=== PATIENT | female | born 1970 | race Caucasian/White ===

== ENCOUNTER → 2020-08-28 10:24 | Outpatient (BNVA) | payer OTHER, SELFPAY | PROVIDERS: PCP Internal Medicine; Visit Provider Surgery | DX: Z76.89 Persons encountering health services in other specified circumstances (principal) ==

== ENCOUNTER 2020-09-21 06:05 | Day surgery (SDC) | payer OTHER, SELFPAY ==
[2020-09-16 09:08] VITALS: BMI 32.5
[2020-09-16 12:08] VITALS: BMI 32.5
[2020-09-21] VITALS (9 sets, daily range): BP systolic 103–125; BP diastolic 54–74; PULSE 55–84; RESP 16–18; TEMP 36.3–36.6; O2SAT 91–98
[2020-09-21] MEDS: Lactated Ringers 1,000 ML 100 ML IVCONT (06:46)
[2020-09-21] MEDS: ceFAZolin Sodium/Dextrose,Iso 2 GM/50 ML PIGGYBACK IV (06:46)
--- NOTE | 2020-09-21 07:17 | MHC.SHP ---
Pre-Procedural Eval Section A The patient is an INPATIENT: No Changes since office visit: Yes Patient answered all questions; No Cold of Flu in the past 2 weeks, No New Medical Problems and No Changes in Medication The History & Physical has been completed within 30 days and I have reviewed it.: Yes Section B Chief Complaint: Umbilical Hernia Allergies: Allergies Allergy/AdvReac Type Severity Reaction Status Date / Time Sulfa (Sulfonamide Allergy Intermediate SWELLING Verified 09/21/20 06:26 Antibiotics) [SULFA (SULFONAMIDE ANTIBIOTICS)] Plan Diagnosis/Plan: Unchanged Patient has been examined and remains a candidate for the planned procedure
--- NOTE | 2020-09-21 07:22 | P.CONAN_ITS ---
[facility] Past Medical History Medical History (Updated 09/16/20 @ 12:06 by Mariajose Kelly) Anxiety Asthma Depression Heart murmur Hypercholesterolemia Hypothyroid Wears contact lenses Family History Family History Father History of pancreatic cancer Paternal Aunt Breast cancer Surgical History Surgical History (Updated 09/16/20 @ 12:06 by Mariajose Kelly) H/O dilation and curettage History of section Social History Social History (Updated 09/16/20 @ 12:07 by Mariajose Kelly) Alcohol intake: current Alcohol intake frequency: a few times a month Smoking Status: Former smoker Smoking Quit Date: 1999 Use of substances other than those prescribed or required for medical reasons: No Advance Directives: No Advance Directives Information Provided: No Advance Directives on File: No Meds Allergies Allergy/AdvReac Type Severity Reaction Status Date / Time Sulfa (Sulfonamide Allergy Intermediate SWELLING Verified 09/21/20 06:26 Antibiotics) [SULFA (SULFONAMIDE ANTIBIOTICS)] Home Medications Medication Instructions Recorded Confirmed Type albuterol sulfate 90 mcg/actuation 2 puff INHALATION Q4-6H PRN 08/28/20 09/21/20 History aerosol inhaler citalopram 20 mg tablet 20 mg PO DAILY 08/28/20 09/21/20 History levothyroxine 125 mcg tablet 125 mcg PO DAILY 08/28/20 09/21/20 History simvastatin 40 mg tablet 40 mg PO BEDTIME 08/28/20 09/21/20 History Exam Exam Date and Time: September 21, 2020 0722 Height,Weight and Vital Signs: Height 5 ft 2 in Weight 80.739 kg Last Vital Signs Temp 97.9 F 09/21/20 06:18 Pulse 55 09/21/20 06:18 Resp 16 09/21/20 06:18 BP 113/69 09/21/20 06:18 Pulse Ox 95 09/21/20 06:18 Airway Mallampati Class: II (small mouth) TM Dist: >3cm Neck ROM: Full Loose/Missing/Broken Teeth: No Heart: RRR Lungs: CTAB Assessment and Plan Assessment Anesthesia Assessment: Anesthesia Plan Discussed and Chart Reviewed Final Anesthetic Review NPO: Yes ASA Class: II Final Preanesthetic Review: No Changes in Pt Med Stat, Meds/Allgs Chart Reviewed, Consent Obtained/Reviewed and Anes Risks/Benef Reviewed Patient Risk: Low Procedure Risk: Low Anesthetic Plan Anesthetic Plan: GA Disposition: Standard PACU
--- NOTE | 2020-09-21 08:40 | PM.OP ---
Brief Operative Note Date of Service: 09/21/20 Pre-op diagnosis: Umbilical hernia Post-op diagnosis: same Procedure: Repair of umbilical hernia with mesh Implants: 6.4 cm round Ventralex mesh Surgeon: Leobardo Beyer MD Anesthesia: GLMA Estimated blood loss (mL): 2 Pathology: none sent Condition: stable Disposition: PACU
--- NOTE | 2020-09-21 08:41 | W.PM.OPN ---
Operative Note Operative Note Date of Service: 09/21/20 Narrative: Preoperative diagnosis: Umbilical hernia Postoperative diagnosis: same Procedure: Repair of Umbilical hernia with mesh Surgeon: Leobardo Beyer MD Perforating Machine Operator: none Anesthesia: General LMA Indications for surgery : Patient is a 50-year-old female presenting with a lump in the umbilicus which increases in size with lifting and straining and reduces with light pressure. Patient is identified the lump which seems to be increasing in size and causing more discomfort. Patient is requested repair of this hernia. Operative findings: 2 cm umbilical hernia Specimen: none EBL: 2 ml Complications: none Procedure details: Patient was brought to the OR and placed in the supine position. After administering general anesthesia
[2020-09-21] MEDS: Acetaminophen 325 MG TABLET 650 MG PO (09:01)
--- NOTE | 2020-09-21 09:05 | HO.POSTANES ---
Post Anesthesia Evaluation Post Anesthesia Evaluation Vital Signs: Vital Signs Temp Pulse Resp BP Pulse Ox 09/21/20 08:45 69 18 107/54 L 96 09/21/20 08:40 68 18 110/56 L 94 09/21/20 08:35 74 18 114/60 91 L 09/21/20 08:30 97.4 F 84 16 119/65 92 09/21/20 06:18 97.9 F 55 16 113/69 95 Anesthesia: General Mental Status: Awake Pain Control: Satisfactory Nausea/Vomiting: None Hydration: Adequate Anesthesia-Related Issues: No Anes. Related Issues
[2020-09-21] MEDS: oxyCODONE HCl Immed Release 5 MG TABLET PO (09:11)
--- NOTE | 2020-09-21 09:44 | P.OP_ITS ---
Operative Note Operative Note Date of Service: 09/21/20 Narrative: Preoperative diagnosis: Umbilical hernia Postoperative diagnosis: same Procedure: Repair of umbilical hernia with mesh Surgeon: Leobardo Beyer MD Precision Devices Inspector/Tester: None Anesthesia: General LMA Indications for procedure patient is a 50-year-old female presenting with a soft tissue mass in the umbilicus which increases in size with lifting and straining reduces with light pressure. On examination the patient is found to have an umbilical hernia which increases in size with Valsalva maneuvers. The hernia is easily reducible. Operative findings: Patient was found to have a 2 cm umbilical hernia repaired with a 6.[address] mesh Estimated blood loss: 2 mL Complications: None Specimen: None Procedure details: Patient was placed in a supine position. After administering general anesthesia the patient's abdomen was prepped with ChloraPrep and draped in a sterile fashion. A surgical time-out was called and consent confirmed. Patient received preoperative antibiotics and Venodyne boots were placed. Local anesthesia consisting of 0.5% Sensorcaine was infiltrated around the umbilicus. Curvilinear incision was made below the umbilicus carried out through subcutaneous tissue up to the hernia sac. The hernia sac was then dissected free from the surrounding subcutaneous tissue. Umbilical skin was then dissected off the hernia sac using electrocautery. The margins of the fa scia were then dissected free and the hernia sac reduced. A preperitoneal space was then created using electrocautery. The hernia defect measured 2 cm in diameter. A 6.[address] mesh was then obtained. This was placed in the preperitoneal space and secured to the fascia using [id number] 1. Tycron sutures. Fascia was closed over the mesh incorporating the mesh in the closure. The wounds were then irrigated with saline and suctioned dry. Wounds were checked for hemostasis. Umbilical skin was then reapproximated to the fascia using a 3-0 Polysorb suture. Dermis was reapproximated using interrupted 3-0 Polysorb sutures. Skin was closed using a running subcuticular 4 0 Polysorb suture. Steri-Strips 2 x 2 gauze and Tegaderm were then applied. The patient tolerated the procedure well. Sponge, instrument, and needle counts reported as correct. The patient was transferred to PACU in stable condition.
== END 2020-09-21 11:00 | disposition home or self-care (01) ==
PROVIDERS: PCP Internal Medicine; Visit Provider Surgery
PROC: (CPT 49585; principal; 2020-09-21 07:30)
DX: K42.9 Umbilical hernia without obstruction or gangrene (principal); Z80.0 Family history of malignant neoplasm of digestive organs; J45.909 Unspecified asthma, uncomplicated; F32.9 Major depressive disorder, single episode, unspecified; E78.00 Pure hypercholesterolemia, unspecified; E03.9 Hypothyroidism, unspecified; Z79.899 Other long term (current) drug therapy; Z88.2 Allergy status to sulfonamides
CPT/HCPCS: 49585; C1781; J0690; J1100; J2250; J2405; J3010

== ENCOUNTER → 2020-09-29 08:15 | Outpatient (BNVA) | payer OTHER, SELFPAY | PROVIDERS: PCP Internal Medicine; Referring Provider Internal Medicine; Visit Provider Surgery | DX: Z76.89 Persons encountering health services in other specified circumstances (principal) ==

== ENCOUNTER → 2020-10-29 09:21 | Outpatient (BNVA) | payer OTHER, SELFPAY | PROVIDERS: PCP Internal Medicine; Visit Provider Surgery | DX: Z76.89 Persons encountering health services in other specified circumstances (principal) ==

== ENCOUNTER → 2021-04-29 08:52 | Outpatient (REF) | payer OTHER, SELFPAY | LOC: HO.SL 08:52 | PROVIDERS: PCP Internal Medicine; Visit Provider Internal Medicine | DX: R06.83 Snoring (principal); R06.81 Apnea, not elsewhere classified | CPT/HCPCS: 95806 ==

== ENCOUNTER 2021-08-28 09:19 | Outpatient (REF) | payer OTHER, SELFPAY ==
[2021-08-28 11:24] LABS: Alanine Aminotransferase 21 U/L (0-31); Albumin Level 4.4 g/dL (3.5-5.0); Alkaline Phosphatase 120 U/L (39-117); Aspartate Amino Transferase 18 U/L (5-31); Bilirubin Direct < 0.2 mg/dL (0.0-0.5); Bilirubin Total 0.4 mg/dL (0.0-1.0); Cholesterol 205 mg/dL; HDL Cholesterol 50 mg/dL; LDL Cholesterol Calculated 136 mg/dl; Total Protein 7.1 g/dL (6.5-8.0); Triglycerides 95 mg/dL
== END 2021-08-28 09:20 | disposition home or self-care (01) ==
LOC: HO.HMGCLDS 09:19
PROVIDERS: PCP Internal Medicine; Visit Provider Internal Medicine
DX: E78.00 Pure hypercholesterolemia, unspecified (principal)
CPT/HCPCS: 36415; 80061; 80076

== ENCOUNTER 2022-02-14 12:16 | Day surgery (SDC) | payer MEDICAID, SELFPAY ==
--- NOTE | 2022-02-10 14:30 | HO.ANESPROP2 ---
Documented by User: Rebeca Elaine NP 02/10/22 14:31 HPI - Anesthesia Eval Consult details Narrative: 52yo F for Colonoscopy PMFSH Active Problems Active Problems: All Active Problems (Updated 02/09/22 @ 11:35 by Princess Espino, RN) Family history of pancreatic cancer (Acute) Past Medical History Medical History (Updated 02/09/22 @ 11:35 by Princess Espino, RN) Anxiety Asthma Depression Heart murmur Hypercholesterolemia Hypothyroid FAZAL on CPAP Wears contact lenses Family History Family History Father History of pancreatic cancer Paternal Aunt Breast cancer Surgical History Surgical History (Updated 02/09/22 @ 11:36 by Princess Espino RN) H/O dilation and curettage H/O umbilical hernia repair History of section Social History Social History Alcohol intake: current Alcohol intake frequency: a few times a month Patient Tobacco Use Status: Never used Tobacco Use of substances other than those prescribed or required for medical reasons: No Advance Directives: No Advance Directives Information Provided: Yes Nutrition Risks: No Nutritional Risk Meds Allergies Allergy/AdvReac Type Severity Reaction Status Date / Time Sulfa (Sulfonamide Allergy Intermediate SWELLING Verified 02/09/22 11:36 Antibiotics) [SULFA (SULFONAMIDE ANTIBIOTICS)] Home Medications Medication Instructions Recorded Confirmed Last Taken Type albuterol sulfate 90 mcg/actuation 2 puff INHALATION Q4-6H PRN 08/28/20 02/09/22 Unknown History aerosol inhaler (ProAir HFA) citalopram 20 mg tablet 20 mg PO DAILY 08/28/20 02/09/22 Unknown History levothyroxine 125 mcg tablet 125 mcg PO DAILY 08/28/20 02/09/22 Unknown History simvastatin 40 mg tablet 40 mg PO BEDTIME 08/28/20 02/09/22 Unknown History lorazepam 0.5 mg tablet 0.5 mg PO TID PRN 02/09/22 02/09/22 Unknown History qtpluxwkglrw-vipshrun-iqdoft 1 tab PO DAILY 02/09/22 02/09/22 Unknown History tablet (Multivitamin 50 Plus) Exam Exam Date and Time: February 10, 2022 1430 Assessment and Plan Assessment Anesthesia Assessment: Chart Reviewed Documented by User: Sujit Burks MD 02/14/22 13:50 PMFSH Past Medical History Medical History (Updated 02/09/22 @ 11:35 by Princess Espino, RN) Anxiety Asthma Depression Heart murmur Hypercholesterolemia Hypothyroid FAZAL on CPAP Wears contact lenses Family History Family History Father History of pancreatic cancer Paternal Aunt Breast cancer Family history of problems with anesthesia: No Surgical History Surgical History (Updated 02/09/22 @ 11:36 by Princess Espino RN) H/O dilation and curettage H/O umbilical hernia repair History of section History of Problems with Anesthesia: No Social History Social History Alcohol intake: current Alcohol intake frequency: a few times a month Patient Tobacco Use Status: Never used Tobacco Use of substances other than those prescribed or required for medical reasons: No Advance Directives: No Advance Directives Information Provided: Yes Nutrition Risks: No Nutritional Risk Meds Allergies Allergy/AdvReac Type Severity Reaction Status Date / Time Sulfa (Sulfonamide Allergy Intermediate SWELLING Verified 02/09/22 11:36 Antibiotics) [SULFA (SULFONAMIDE ANTIBIOTICS)] Home Medications Medication Instructions Recorded Confirmed Last Taken Type albuterol sulfate 90 mcg/actuation 2 puff INHALATION Q4-6H PRN 08/28/20 02/09/22 Unknown History aerosol inhaler (ProAir HFA) citalopram 20 mg tablet 20 mg PO DAILY 08/28/20 02/09/22 Unknown History levothyroxine 125 mcg tablet 125 mcg PO DAILY 08/28/20 02/09/22 Unknown History simvastatin 40 mg tablet 40 mg PO BEDTIME 08/28/20 02/09/22 Unknown History lorazepam 0.5 mg tablet 0.5 mg PO TID PRN 02/09/22 02/09/22 Unknown History valnijhiyedv-hqsnkaji-yfkjnv 1 tab PO DAILY 02/09/22 02/09/22 Unknown History tablet (Multivitamin 50 Plus) Exam Airway Mallampati Class: II TM Dist: >3cm Neck ROM: Full Loose/Missing/Broken Teeth: No Heart: rrr+s1s2 Lungs: cta b/l Assessment and Plan Assessment Anesthesia Assessment: Anesthesia Plan Discussed Final Anesthetic Review Family History of Problems with Anesthesia: No History of Problems with Anesthesia: No NPO: Yes ASA Class: II Final Preanesthetic Review: No Changes in Pt Med Stat, Meds/Allgs Chart Reviewed, Consent Obtained/Reviewed and Anes Risks/Benef Reviewed Patient Risk: Intermediate Procedure Risk: Low Assessment/Block/Sedation in SS: Assess/Block/Sedation-SS Anesthetic Plan Anesthetic Plan: MAC: and Agree w/ Assess. and Plan Disposition: Standard PACU
[2022-02-14 13:17] VITALS: BP 127/69; PULSE 64; RESP 16; TEMP 36.8; O2SAT 95; BMI 33.8
--- NOTE | 2022-02-14 13:30 | OP_ITS ---
SURGEON: Viet Ortiz MD INDICATIONS: The patient presents for evaluation of colorectal cancer screening. Full consent was obtained from her for this, including risks of bleeding and perforation. PREOPERATIVE DIAGNOSIS: Colorectal cancer screening. POSTOPERATIVE DIAGNOSIS: PROCEDURE PERFORMED: Colonoscopy to the cecum and terminal ileum. ESTIMATED BLOOD LOSS: COMPLICATIONS: ANESTHESIA: Monitored anesthesia care. ASSISTANTS: SPECIMENS: POSTOPERATIVE DIAGNOSES: 1.Colorectal cancer screening. 2.Diverticulosis. DESCRIPTION OF PROCEDURE: The patient was placed in the left lateral decubitus position. The digital rectal exam revealed no abnormalities. The Olympus video pediatric colonoscope was entered into the rectum and advanced easily to the cecum. Once in the cecum, I did identify normal-appearing cecal pouch with appendiceal orifice and a normal-appearing ileocecal valve. The terminal ileum was cannulated and appeared normal. The scope was withdrawn back into the colon. The entire cecum and ileocecal valve appeared normal. The scope was slowly withdrawn assessing all mucosal surfaces carefully. Preparation was excellent. I did not visualize any sign of polyps, colitis, nor angiodysplasia. Diverticulosis was noted in the sigmoid colon. In the rectum, the scope was retroflexed visualizing small internal hemorrhoids, but no other pathology. The rectal mucosa appeared normal. The scope was straightened and withdrawn from the patient. She tolerated the procedure well and was returned to the recovery area in stable condition. IMPRESSION: 1.Diverticulosis. 2.Internal hemorrhoids. PLAN: Given the negative exam, I would recommend a followup colonoscopy in 10 years for further screening. She will otherwise see me on a p.r.n. basis. Viet Ortiz MD RMW/EUGENIOL / [id number] MTDNeal
[2022-02-14] MEDS: Lactated Ringers 1,000 ML 100 ML IVCONT (13:40)
[2022-02-14 16:08] VITALS: BP 110/60; PULSE 69; RESP 16; TEMP 36.6; O2SAT 96
--- NOTE | 2022-02-14 16:10 | PM.OP ---
Brief Operative Note Date of Service: 02/14/22 Pre-op diagnosis: Screening Post-op diagnosis: other (Diverticulsosis) Procedure: Colonoscopy to the cecum and TI Surgeon: Viet Ortiz Anesthesia: MAC Was an Legal Word Processor used for this Procedure?: No Estimated blood loss (mL): 0 Pathology: none sent Condition: stable Disposition: PACU
[2022-02-14 16:23] VITALS: BP 102/51; PULSE 57; RESP 16; O2SAT 94
[2022-02-14 16:38] VITALS: BP 107/64; PULSE 54; RESP 16; TEMP 36.6; O2SAT 95
== END 2022-02-14 16:57 | disposition home or self-care (01) ==
PROVIDERS: PCP Internal Medicine; Visit Provider Internal Medicine
PROC: 0DJD8ZZ Inspection of Lower Intestinal Tract, Via Natural or Artificial Opening Endoscopic (ICD-10-PCS; CPT 45378; principal; 2022-02-14 13:30)
DX: Z12.11 Encounter for screening for malignant neoplasm of colon (principal); K57.30 Diverticulosis of large intestine without perforation or abscess without bleeding; Z80.0 Family history of malignant neoplasm of digestive organs; J45.909 Unspecified asthma, uncomplicated; E03.9 Hypothyroidism, unspecified; G47.33 Obstructive sleep apnea (adult) (pediatric); F41.1 Generalized anxiety disorder; E78.5 Hyperlipidemia, unspecified; R01.1 Cardiac murmur, unspecified; Z79.899 Other long term (current) drug therapy; Z88.2 Allergy status to sulfonamides; Z87.891 Personal history of nicotine dependence
CPT/HCPCS: 45378

== ENCOUNTER 2022-08-19 06:33 | Outpatient (REF) | payer MEDICAID, SELFPAY ==
[2022-08-19 11:25] LABS: MANUAL DIFF FLAG NO
[2022-08-19 11:44] LABS: Basophils Percent Auto 0.8 % (0-2); Eosinophils Absolute Auto 0.2 X10*3/uL (0.0-0.4); Eosinophils Percent Auto 4.9 % (0-4); Hematocrit 39.2 % (37.0-47.0); Hemoglobin 12.9 g/dl (12.0-16.0); Imm Gran Abs Auto 0.01 X10*3/uL (0.00-0.03); Imm Gran Pct Auto 0.3 % (0.0-0.4); Lymphocytes Absolute Auto 1.1 X10*3/uL (1.2-4.9); Lymphocytes Percent Auto 29.5 % (20-40); Mean Corpuscular HGB Conc 32.9 g/dl (31.0-35.0); Mean Corpuscular Hemoglobin 29.1 pg (27.0-33.0); Mean Corpuscular Volume 88.3 fL (80.0-98.0); Mean Platelet Volume 10.6 fL (9.4-12.3); Monocytes Absolute Auto 0.4 X10*3/uL (0.1-1.2); Monocytes Percent Auto 10.1 % (2-11); Neutrophils Absolute Auto 2.1 x10*3/uL (2.0-8.3); Neutrophils Percent Auto 54.4 % (45-73); Platelet Count 232 X10*3/uL (160-400); Red Blood Count 4.44 X10*6/uL (4.20-5.50); Red Cell Distribution Width 12.9 % (11.0-16.0); White Blood Count 3.9 X10*3/uL (4.8-10.8)
[2022-08-19 12:12] LABS: Alanine Aminotransferase 23 U/L (0-31); Albumin Level 4.3 g/dL (3.5-5.0); Alkaline Phosphatase 110 U/L (39-117); Anion Gap 15 (12-20); Aspartate Amino Transferase 20 U/L (5-31); Bilirubin Direct < 0.2 mg/dL (0.0-0.5); Bilirubin Total 0.3 mg/dL (0.0-1.0); Blood Urea Nitrogen 16 mg/dL (9-16); Carbon Dioxide 25 mmol/L (22-29); Chloride 107 mmol/L (96-108); Cholesterol 168 mg/dL; Estimated Glomerular Filt Rate > 60; Glucose Fasting 113 mg/dL (60-99); HDL Cholesterol 50 mg/dL; LDL Cholesterol Calculated 94 mg/dl; Sodium 143 mmol/L (135-145); Total Protein 6.9 g/dL (6.5-8.0); Triglycerides 121 mg/dL
[2022-08-19 12:19] LABS: T4 Thyroxine 7.4 ug/dL (4.5-12.0); Thyroid Stimulating Hormone 0.44 uIU/mL (0.32-4.0)
== END 2022-08-19 06:34 | disposition home or self-care (01) ==
LOC: HO.HMGCLDS 06:33
PROVIDERS: PCP Internal Medicine; Visit Provider Internal Medicine
DX: R53.83 Other fatigue (principal); E78.00 Pure hypercholesterolemia, unspecified; E03.9 Hypothyroidism, unspecified
CPT/HCPCS: 36415; 80051; 80061; 80076; 82565; 82947; 84436; 84443; 84520; 85025

== ENCOUNTER 2022-11-28 06:35 | Outpatient (REF) | payer OTHER, SELFPAY ==
[2022-11-28 13:47] LABS: Glucose Fasting 114 mg/dL (60-99)
[2022-11-28 14:14] LABS: Free T4 (Free Thyroxine) 0.86 ng/dL (0.71-1.85); Thyroid Stimulating Hormone 0.84 uIU/mL (0.32-4.0)
== END 2022-11-28 06:36 | disposition home or self-care (01) ==
LOC: HO.HMGCLDS 06:35
PROVIDERS: PCP Internal Medicine; Visit Provider Internal Medicine
DX: R53.83 Other fatigue (principal)
CPT/HCPCS: 36415; 82947; 84439; 84443

== ENCOUNTER 2023-02-24 06:42 | Outpatient (REF) | payer OTHER, SELFPAY ==
[2023-02-24 12:34] LABS: Cholesterol 156 mg/dL; Free T4 (Free Thyroxine) 1.04 ng/dL (0.71-1.85); Glucose Fasting 109 mg/dL (60-99); HDL Cholesterol 46 mg/dL; LDL Cholesterol Calculated 89 mg/dl; Thyroid Stimulating Hormone 0.67 uIU/mL (0.32-4.0); Triglycerides 108 mg/dL
== END 2023-02-24 06:43 | disposition home or self-care (01) ==
LOC: HO.HMGCLDS 06:42
PROVIDERS: PCP Internal Medicine; Visit Provider Internal Medicine
DX: R73.09 Other abnormal glucose (principal); E78.5 Hyperlipidemia, unspecified; R53.83 Other fatigue; E03.9 Hypothyroidism, unspecified
CPT/HCPCS: 36415; 80061; 82947; 84439; 84443

== ENCOUNTER 2024-04-10 15:17 | Outpatient (REF) | payer OTHER, SELFPAY ==
--- NOTE | ~2024-04-10 | XR_ITS ---
EXAMINATION: XR CHEST CLINICAL INFORMATION: Shortness of breath, cough for 2 weeks, rule out pneumonia. COMPARISON: None available. TECHNIQUE: 2 views of the chest were obtained. FINDINGS: There is no gross pneumothorax. Lung volumes are low. Heart size within normal limits. Moderate degenerative changes in the thoracic spine. Mild loss of height of several midthoracic vertebral bodies of indeterminate age and etiology. No pleural effusion. Mild streaky bibasilar opacities, left greater than right, may represent atelectasis, although an infectious/inflammatory process should also be considered. XR/XR chest 2V IMPRESSION: 1. Mild streaky bibasilar opacities, left greater than right, may represent atelectasis, although an infectious/inflammatory process should also be considered. 2. Mild loss of height of several midthoracic vertebral bodies of indeterminate age and etiology.
== END 2024-04-10 15:18 | disposition home or self-care (01) ==
LOC: HO.HMGCX 15:17
PROVIDERS: PCP Internal Medicine; Visit Provider Internal Medicine
DX: R06.02 Shortness of breath (principal); R05.9 Cough, unspecified
CPT/HCPCS: 71046

== ENCOUNTER 2025-04-22 06:06 | Outpatient (REF) | payer OTHER, SELFPAY ==
--- OUTSIDE RECORDS SUMMARY | 2025-04-22 06:11 | XMS_ITS | Patient Health Record ---
Author Organization [facility] Address [address] [place] [address] Care Team Providers Care Collector Of Port Name Role Phone Ganga Kebede MD Primary Care Provider Unavailab Bernabe Mariano Unavailable [phone] Allergies Allergen (clinical drug ingredient) Drug/Non Drug Allergy documented on EMR Reaction Allergy Type Onset Date Status ciprofloxacin Cipro stomach pain Drug Allergy Active Levaquin swelling Drug Allergy Active Reason For Referral No Information Medications Medication SIG (Take, Route, Fr equency, Duration) Notes Start Date End Date Status Simvastatin Active Levothyroxine Sodium Active Midrin Active Meclizine HCl Active Benadryl Active ProAir HFA Active Problems Problem Type SNOMED Code ICD Code Onset Dates Problem Status W/U Status Risk Notes Problem Verruca plantaris (43165453) Verruca Plantaris (078.19) Active confirmed Problem Hallux valgus (215293753) Hallux Valgus (735.0) Active confirmed Problem Pain in limb (29791316) Pain in Limb (729.5) Active confirmed Plan Of Treatment Pending Test Test Name Order Date X ray : Foot, right 3V 08/11/2014 [id number] Destruction, -09/01/2014 [id number] Destruction, 11-1909/24/2014 [id number] Destruction, 11-1910/22/2014 [id number] Destruction, -08/11/2014 Insurance Providers Payer Name Payer Address Payer Phone Subscriber Number Group Number Insured Name Patient Relationship to Insured Coverage Start Date Coverage End Date [facility] [address] [place] [address] [phone] [id number] Cindy Brennan Self - patient is the insured Medical (General) History Medical History History ICD Code Anxiety asthma Back,Hip,and Knee pain Chicken pox Headaches Migraines Sinus conditions Thyroid disorder Surgical History Surgery Date(Month/Year) section 1999, 2006 dilatation and curettage 2004, 2005
[2025-04-22 10:21] LABS: MANUAL DIFF FLAG NO
[2025-04-22 10:28] LABS: Basophils Percent Auto 0.9 % (0-2); Eosinophils Absolute Auto 0.1 X10*3/uL (0.0-0.4); Eosinophils Percent Auto 3.9 % (0-4); Hematocrit 39.4 % (37.0-47.0); Hemoglobin 12.7 g/dl (12.0-16.0); Imm Gran Abs Auto 0.01 X10*3/uL (0.00-0.03); Imm Gran Pct Auto 0.3 % (0.0-0.4); Lymphocytes Absolute Auto 0.9 X10*3/uL (1.2-4.9); Lymphocytes Percent Auto 26.9 % (20-40); Mean Corpuscular HGB Conc 32.2 g/dl (31.0-35.0); Mean Corpuscular Hemoglobin 28.1 pg (27.0-33.0); Mean Corpuscular Volume 87.2 fL (80.0-98.0); Mean Platelet Volume 10.6 fL (9.4-12.3); Monocytes Absolute Auto 0.4 X10*3/uL (0.1-1.2); Monocytes Percent Auto 11.9 % (2-11); Neutrophils Absolute Auto 1.9 x10*3/uL (2.0-8.3); Neutrophils Percent Auto 56.1 % (45-73); Platelet Count 232 X10*3/uL (160-400); Red Blood Count 4.52 X10*6/uL (4.20-5.50); Red Cell Distribution Width 13.1 % (11.0-16.0); White Blood Count 3.4 X10*3/uL (4.8-10.8)
[2025-04-22 10:58] LABS: Alanine Aminotransferase 32 U/L (0-31); Albumin Level 4.2 g/dL (3.5-5.0); Alkaline Phosphatase 107 U/L (39-117); Anion Gap 11 (12-20); Aspartate Amino Transferase 31 U/L (5-31); Bilirubin Total 0.5 mg/dL (0.0-1.0); Blood Urea Nitrogen 16 mg/dL (9-16); Calcium 9.5 mg/dL (8.4-10.2); Carbon Dioxide 28 mmol/L (22-29); Chloride 110 mmol/L (96-108); Cholesterol 138 mg/dL (<200); Estimated Glomerular Filt Rate > 60; Glucose Fasting 111 mg/dL (60-99); HDL Cholesterol 46 mg/dL (>40); LDL Cholesterol Calculated 71 mg/dL (<100); Potassium 3.8 mmol/L (3.3-5.1); Sodium 145 mmol/L (135-145); Total Protein 6.4 g/dL (6.5-8.0); Triglycerides 109 mg/dL (<150)
[2025-04-22 11:24] LABS: Free T4 (Free Thyroxine) 1.37 ng/dL (0.71-1.85); Thyroid Stimulating Hormone < 0.01 uIU/mL (0.32-4.0)
== END 2025-04-22 06:07 | disposition home or self-care (01) ==
LOC: HO.HMGCLDS 06:06
PROVIDERS: PCP Internal Medicine; Visit Provider Internal Medicine
DX: E03.9 Hypothyroidism, unspecified (principal); R53.83 Other fatigue; E78.5 Hyperlipidemia, unspecified
CPT/HCPCS: 36415; 80053; 80061; 84439; 84443; 85025

== ENCOUNTER 2025-06-19 04:15 | Emergency (ER) | payer OTHER, SELFPAY ==
--- NOTE | ~2025-06-19 | CT_ITS ---
CLINICAL HISTORY: L flank pain CT abdomen and pelvis without contrast Comparison: None provided Findings: No consolidation or effusion. There is abnormal stranding about a segment of thickened descending colon in the region of diverticulosis. No free air, free fluid, abscess or pneumatosis. Mild fecal retention within the colon. The unenhanced liver, spleen, gallbladder, adrenal glands, pancreas, kidneys, ureters and bladder are unremarkable. Uterus and adnexa are within normal limits. Moderate atherosclerotic disease. No acute osseous finding. Impression: Acute uncomplicated diverticulitis involving the mid descending colon. This document has been electronically signed by: Osmar Acosta MD on 06/19/2025 07:10:57
[2025-06-19 04:21] VITALS: BP 122/63; PULSE 74; RESP 16; TEMP 35.8; O2SAT 94; BMI 29.8
[2025-06-19 04:39] LABS: MANUAL DIFF FLAG NO
[2025-06-19 04:40] LABS: Appearance Urine Clear; Glucose Urine UA Negative (Negative); Hematocrit 37.5 % (37.0-47.0); Hemoglobin 12.9 g/dl (12.0-16.0); Imm Gran Abs Auto 0.02 X10*3/uL (0.00-0.03); Imm Gran Pct Auto 0.2 % (0.0-0.4); Lymphocytes Absolute Auto 0.8 X10*3/uL (1.2-4.9); Mean Corpuscular HGB Conc 34.4 g/dl (31.0-35.0); Mean Corpuscular Hemoglobin 28.9 pg (27.0-33.0); Mean Corpuscular Volume 84.1 fL (80.0-98.0); NRBC Abs Auto 0.000 X10*3/uL (0.0-0.012); NRBC Pct Auto 0.0 /100WBC (0.0-0.2); PH 5.5 (5.0-9.0); Platelet Count 194 X10*3/uL (160-400); Red Blood Count 4.46 X10*6/uL (4.20-5.50); Specific Gravity - Urine 1.025 (1.005-1.025); UMIC TRIGGER UACC YES; White Blood Count 8.3 X10*3/uL (4.8-10.8)
[2025-06-19 04:59] LABS: Alanine Aminotransferase 37 U/L (0-31); Albumin Level 4.3 g/dL (3.5-5.0); Alkaline Phosphatase 117 U/L (39-117); Anion Gap 11 (12-20); Aspartate Amino Transferase 26 U/L (5-31); Blood Urea Nitrogen 18 mg/dL (9-16); Calcium 9.4 mg/dL (8.4-10.2); Carbon Dioxide 25 mmol/L (22-29); Chloride 110 mmol/L (96-108); Creatinine Clr Calc Pharmacy 97.8; Estimated Glomerular Filt Rate > 60; Lipase 39 U/L (8-78); Potassium 3.8 mmol/L (3.3-5.1); Sodium 142 mmol/L (135-145); Total Protein 6.5 g/dL (6.5-8.0)
--- OUTSIDE RECORDS SUMMARY | 2025-06-19 05:26 | XMS_ITS | Continuity of Care Document ---
Author Organization [facility] Address [address] [address] Insurance Providers Payer Plan Claims Address Claims Phone Policy Number Group Number Relation Employer Guarantor Name Guarantor Guarantor Address Guarantor Phone [employer] [address], [place] [address] tel:[phone] [id number] Self Cindy Brennan [address] [place] [address] [facility] [id number] Self Cindy Brennan [address] [place] [id number] MEDIC AID OF [facility] [address], [place] [address] tel:[phone] [id number] Self Cindy Brennan [address] [place] [address] Problems Condition ICD9 code ICD10 code SNOMED code Start Date End Date S tatus Encounter for screening for other metabolic disorders Z13.228 Results No Results Allergies, adverse reactions, alerts No known allergies and adverse reactions Medications No administered medications reported Vital Signs No vital signs reported Social History No smoking Hx information available
--- OUTSIDE RECORDS SUMMARY | 2025-06-19 05:26 | XMS_ITS | Patient Health Record ---
Author Organization [facility] Address [address] [place] [address] Care Team Providers Care Core Drilling Supervisor Name Role Phone Yandy (RETIRED) Ganga ORELLANA Primary Care Provider Unavailable Viet Ortiz Unavailable [phone] Allergies Allergen (clinical drug ingredient) Drug/Non Drug Allergy documented on EMR Reaction Allergy Type Onset Date Status sulfacetamide Sulfacetamide Sodium Unknown Drug Allergy Active Reason For Referral No Information Medications Medication SIG (Take, Route, Frequency, Duration) Notes Start Date End Date Status Multivitamin Adults - as directed Orally Active LORazepam 0.5 MG 1 tablet as needed Orally every 6 hrs Not-Taking Rosuvastatin Calcium 40 MG TAKE 1 TABLET BY MOUTH EVERY DAY Oral for 90 Active Simvastatin Active Levothyroxine Sodium Active Citalopram Hydrobromide Active Proventil HFA Active Immunizations Vaccine Route Administration Date Status Comme nts Influenza Unknown 09/06/2018 Administered Influenza Unknown 11/15/2021 Administered Social History Tobacco Use: Social History Observation Description Date Details (start date - stop date) Former Smoker NA - NA Tobacco Use/Smoking Question Answer Notes Patient is a former smoker How long has it been since you last smoked? > 10 years Alcohol Screen Question Answer Notes Did you have a drink contain ing alcohol in the past year? Yes How often did you have a dri nk containing alcohol in the past year? Monthly or less (1 point) How many drinks did you have on a typical day when you were drinking in the past year? 1 or 2 drinks (0 point) Points 1 Interpretation Negative Section Notes: Nonsmoker; no sig alcohol Nonsmoker; no sig alcohol Problems Problem Type SNOMED Code ICD Code Onset Dates Problem Status W/U Status Risk Notes Problem 225921133 Encounter for screening for malignant neoplasm of colon (Z12.11) Active confirmed Problem [id number] Preprocedural examination (Z01.818) Active confirmed Plan Of Treatment Future Test Test Name Order Date COLONOSCOPY 11/22/2018 COLONOSCOPY 01/26/2022 Insurance Providers Payer Name Payer Address Payer Phone Subscriber Number Group Number Insured Name Patient Relationship to Insured Coverage Start Date Coverage End Date MEDICAID OF [facility] [address] [place] [phone] [id number] JUNI ZAMORA Self - patient is the insured Medical (General) History Medical History History ICD Code Heart murmur--does not see a civil preparedness coordinator and does not get periodic echocardiograms Asthma Denies NE,DM,CVA,renal disease Hypothyroidism Anxiety Sleep apnea -uses a CPAP Hyperlipidemia Surgical History Surgery Date(Month/Year) C-sections D & C Umbilical Hernia [id number]. Mazzuc co
--- OUTSIDE RECORDS SUMMARY | 2025-06-19 05:26 | XMS_ITS | Continuity of Care Document ---
Author Organization [facility] Address [address] [address] Insurance Providers Payer Plan Claims Address Claims Phone Policy Number Group Number Relation Employer Guarantor Name Guarantor Guarantor Address Guarantor Phone [employer] [address], [place] [address] tel:[phone] [id number] Self Cindy Brennan [address] [place] [address] [facility] [id number] Self Cindy Brennan [address] [place] [address] MEDIC AID OF [facility] [address], [place] [address] tel:[phone] [id number] Self Cindy Brennan [address] [place] [address] Problems Condition ICD9 code ICD10 code SNOMED code Start Date End Date S tatus Encounter for screening for other metabolic disorders Z13.228 Results No Results Allergies, adverse reactions, alerts No known allergies and adverse reactions Medications No administered medications reported Vital Signs No vital signs reported Social History No smoking Hx information available
--- OUTSIDE RECORDS SUMMARY | 2025-06-19 05:26 | XMS_ITS | Patient Health Record ---
Author Organization [facility] Address [address] [facility] [place] [address] Care Team Providers Care Skiver Machine Operator Name Role Phone Ganga Kebede MD Primary Care Provider Unavailab Bernabe Mariano Unavailable [phone] Allergies Allergen (clinical drug ingredient) Drug/Non Drug [...] W/U Status Risk Notes Problem Verruca plantaris (75523547) Verruca Plantaris (078.19) Active confirmed Problem Hallux valgus (813726619) Hallux Valgus (735.0) Active confirmed Problem Pain in limb (92695522) Pain in Limb (729.5) Active confirmed Plan Of Treatment Pending Test Test Name Order Date X ray : Foot, right 3V 08/11/2014 [id number] Destruction, 11-1909/01/2014 [id number] Destruction, 11-1909/24/2014 [id number] Destruction, 11-1910/22/2014 [id number] Destruction, -08/11/2014 Insurance Providers Payer Name Payer Address Payer Phone Subscriber Number Group Number Insured Name Patient Relationship to Insured Coverage Start Date Coverage End Date [facility] [address] [place] [address] [phone] [id number] Cindy Brennan Self - patient is the insured Medical (General) History Medical History History ICD Code Anxiety asthma Back,Hip,and Knee pain Chicken pox Headaches Migraines Sinus conditions Thyroid disorder Surgical History Surgery Date(Month/Year) section 1999, 2006 dilatation and curettage 2004, 2005
--- NOTE | 2025-06-19 05:36 | ED.ABDPAIN ---
HPI - Abdominal Pain General Chief Complaint: Abdominal Pain Stated Complaint: left upper pain Time Seen by Provider: 06/19/25 05:23 Source: patient Mode of arrival: ambulatory Limitations: no limitations History of Present Illness ED Provider: Dr. Nusrat Rivera HPI narrative: Patient comes to the emergency room complaining of left-sided flank pain. Patient states that it started in the evening before going to work. Patient states that she works at [employer], does tend to do a lot of lifting but nothing obvious that might have hurt her. Patient denies hematuria and dysuria, complaining of chills, no fever, no significant abdominal pain. Denies nausea vomiting or diarrhea, no history of kidney stones. Related Data Home Medications ?Medication ?Instructions ?Recorded ?Confirmed albuterol sulfate 90 mcg/actuation 2 puff inhalation Q4-6H PRN 08/28/20 02/09/22 aerosol inhaler (ProAir HFA) Shortness Of Breath Or Wheezing citalopram 20 mg tablet 20 mg PO DAILY 08/28/20 02/09/22 simvastatin 40 mg tablet 40 mg PO BEDTIME 08/28/20 02/09/22 lorazepam 0.5 mg tablet 0.5 mg PO TID PRN Anxiety 02/09/22 02/09/22 [id number] 1 tab PO DAILY 02/09/22 02/09/22 tablet (Multivitamin 50 Plus tablet) Previous Rx's ?Medication ?Instructions ?Recorded levothyroxine 150 mcg tablet 150 mcg PO DAILY #90 tabs 06/10/25 (Synthroid) levofloxacin 500 mg tablet 500 mg PO DAILY #9 tabs 06/19/25 metronidazole 500 mg tablet 500 mg PO BID #19 tabs 06/19/25 oxycodone 5 mg tablet 5 mg PO BID PRN pain #7 tabs 06/19/25 polyethylene glycol 3350 17 17 g PO DAILY #238 grams 06/19/25 gram/dose oral powder (Miralax) Allergies Allergy/AdvReac Type Severity Reaction Status Date / Time Sulfa (Sulfonamide Allergy Intermediate SWELLING Verified 02/09/22 11:36 Antibiotics) (SULFA (SULFONAMIDE ANTIBIOTICS)) sulfamethoxazole (From AdvReac Swelling Verified 06/19/25 04:23 Bactrim) trimethoprim (From Bactrim) AdvReac Swelling Verified 06/19/25 04:23 Review of Systems Review of Systems Constitutional : No Weight loss, No Fever, No Chills, No Night Sweats, No Fatigue, No Malaise ENT/Mouth : No Hearing loss, No Ear Pain, No Nasal Congestion, No Sinus Pain, No Hoarseness, No sore throat, No Rhinorrhea, No Swallowing Difficulty Eyes: No Eye Pain, No Swelling, No Redness, No Foreign Body, No Discharge, No Vision Changes Cardiovascular : No Chest Pain, No SOB, No Dyspnea on Exertion, No Orthopnea, No Edema, No Palpitations Respiratory : No Cough, No Sputum, No Wheezing, No Smoke Exposure, No Dyspnea Gastrointestinal : No Nausea, No Vomiting, No Diarrhea, No Constipation, No abdominal Pain, No Hematochezia, No Melena Genitourinary : no irregular bleeding, No Dysuria, No Urinary Frequency, No Hematuria, No Urinary Incontinence, No Urgency, complaining of left-sided Flank Pain, No Urinary Flow Changes, No Hesitancy Musculoskeletal : No joint pain, No Myalgias, No Joint Swelling Skin : No Skin Lesions, No rash Neuro : No Weakness, No Numbness, No Paresthesias, No Loss of Consciousness, No Dizziness, No Headache Psych : No Anxiety/Panic, No Depression, No SI/HI/AH/VH, No Social Issues, Heme/Lymph: No Bruising, No Bleeding,No Lymphadenopathy Endocrine : No Polyuria, No Polydipsia, No Temperature Intolerance COUNT INCLUDES THE [facility] Past Medical History Medical History FAZAL on CPAP Wears contact lenses Heart murmur Depression Anxiety Hypercholesterolemia Hypothyroid Asthma Surgical History (Updated 02/09/22 @ 11:36 by Princess Espino RN) H/O umbilical hernia repair H/O dilation and curettage History of section Family History Family History Father History of pancreatic cancer Paternal Aunt Breast cancer Social History Social History Alcohol intake: current Alcohol intake frequency: holidays/special occasions only Patient Tobacco Use Status: Never used Tobacco Smoked in Last 30 Days: No Use of substances other than those prescribed or required for medical reasons: No Advance Directives: No Advance Directives Information Provided: Yes Do you have a plan to hurt others: No Plan Patient : No Physical Exam ED Exam Exam: Appearance: Alert. Oriented X3. No acute distress. Well-appearing Eyes: Pupils equal, round and reactive to light. ENT: Pharynx normal. Neck: Normal inspection. Neck supple. No lymph nodes noted. No crepitus CVS: Normal heart rate and rhythm. Pulses normal. Normal S1 and S2 Respiratory: No respiratory distress. Breath sounds normal. No Wheezing. No rales Abdomen: Soft , when palpating any of the quadrants, the pain radiates towards the left flank, no rebound or guarding Skin: Skin warm and dry. Normal skin color. Normal skin turgor. Extremities: No lower extremity edema. No Lacerations. No Rash Neuro: Oriented X 3. No motor deficit. No sensory deficit. Moving all extremities. No slurred speech. CN 2 through 12 grossly intact Psych: calm, cooperative, normal affect Vital Signs: Vital Signs - 24 hr 06/19/25 04:21 06/19/25 06:00 Temperature 96.5 F L 98.6 F Pulse Rate 74 61 Respiratory Rate 16 17 Blood Pressure 122/63 122/61 Pulse Oximetry 94 96 Oxygen Delivery Method Room Air Room Air BMI result Body Mass Index 29.8 Course Course Course Narrative: Patient comes in complaining of left-sided flank pain, no history of trauma. No hematuria dysuria, complaining of chills but no fever All of patient's labs, imaging pending Patient receiving IV fluids, ketorolac and Zofran Medical Decision Making Medical Decision Making [facility] Narrative: My interpretation of labs: No significant abnormality patient's hematology and chemistry, no significant abnormality in LFTs, lipase normal, urinalysis neck CT scan shows acute uncomplicated diverticulitis involving the mid descending colon I discussed the above-mentioned with the patient. Patient states that she is still in pain. I offered to the patient IV medications, admission. Patient states that she would prefer to try to go home. Patient states that if she does not feel better or if she worsens, she will return. Sounds like a reasonable option. Although given that patient is still in pain, but be better to keep the patient. However, per patient's request, we will send her home. Differential Diagnosis Differential Diagnoses: The differential diagnosis associated with the presentation includes (Ureterolithiasis, pyelonephritis, musculoskeletal pain) Admission/Observation Consideration of admission/observation: Escalation of care including admission/observation considered (Given patient's initial presentation and symptoms, observation was considered) Lab Data MDM Lab Attestation statement: I reviewed the patient's lab results. 06/19/25 04:35 06/19/25 04:35 Labs: Lab Results 06/19/25 Range/Units 04:35 WBC 8.3 (4.8-10.8) X10*3/uL RBC 4.46 (4.20-5.50) X10*6/uL Hgb 12.9 (12.0-16.0) g/dl Hct 37.5 (37.0-47.0) % MCV 84.1 (80.0-98.0) fL MCH 28.9 (27.0-33.0) pg MCHC 34.4 (31.0-35.0) g/dl RDW 13.1 (11.0-16.0) % Plt Count 194 (160-400) X10*3/uL MPV 10.0 (9.4-12.3) fL Immature Gran % (Auto) 0.2 (0.0-0.4) % Neut % (Auto) 79.2 H (45-73) % Lymph % (Auto) 9.4 L (20-40) % [place] % (Auto) 9.5 (2-11) % Eos % (Auto) 1.3 (0-4) % Baso % (Auto) 0.4 (0-2) % Lymph # (Auto) 0.8 L (1.2-4.9) X10*3/uL [place] # (Auto) 0.8 (0.1-1.2) X10*3/uL Eos # (Auto) 0.1 (0.0-0.4) X10*3/uL Baso # (Auto) 0.0 (0.0-0.2) X10*3/uL Abs Immat Gran (auto) 0.02 (0.00-0.03) X10*3/uL Absolute Neuts (auto) 6.6 (2.0-8.3) x10*3/uL Absolute Nucleated RBC 0.000 (0.0-0.012) X10*3/uL Nucleated RBC % (auto) 0.0 (0.0-0.2) /100WBC Sodium 142 (135-145) mmol/L Potassium 3.8 (3.3-5.1) mmol/L Chloride 110 H (96-108) mmol/L Carbon Dioxide 25 (22-29) mmol/L Anion Gap 11 L (12-20) BUN 18 H (9-16) mg/dL Creatinine 0.62 (0.5-1.4) mg/dL Estim Creat Clear Calc 97.8 Estimated GFR > 60 Random Glucose 115 (60-115) mg/dL Calcium 9.4 (8.4-10.2) mg/dL Total Bilirubin 0.6 (0.0-1.0) mg/dL AST 26 (5-31) U/L ALT 37 H (0-31) U/L Alkaline Phosphatase 117 (39-117) U/L Total Protein 6.5 (6.5-8.0) g/dL Albumin 4.3 (3.5-5.0) g/dL Lipase 39 (8-78) U/L Urine Color Yellow Urine Appearance Clear Urine pH 5.5 (5.0-9.0) Ur Specific [place] 1.025 (1.005-1.025) Urine Protein Trace (Neg-Trace) mg/dL Urine Glucose (UA) Negative (Negative) mg/dL Urine Ketones 40 (Negative) mg/dL Urine Blood Trace H (Negative) Urine Nitrite Negative (Negative) Ur Leukocyte Esterase Negative (Negative) Urine RBC 3-5 H (0-2) /HPF Urine WBC 0-5 (0-5) /HPF Ur Squamous Epith Cells 0-2 (0-2) /HPF Urine Bacteria None Seen (None Seen) Hyaline Casts 0-2 (0-2) /LPF Independent Interpretation I performed an independent interpretation of an: CT Scan Radiology Impression Discussion of test interpretation with radiology: I have reviewed the radiologist's reading. Radiologist Impression: No consolidation or effusion. There is abnormal stranding about a segment of thickened descending colon in the region of diverticulosis. No free air, free fluid, abscess or pneumatosis. Mild fecal retention within the colon. The unenhanced liver, spleen, gallbladder, adrenal glands, pancreas, kidneys, ureters and bladder are unremarkable. Uterus and adnexa are within normal limits. Moderate atherosclerotic disease. No acute osseous finding. Impression: Acute uncomplicated diverticulitis involving the mid descending colon. Medications Administered Discontinued Medications Generic Name Dose Route Start Last Admin Trade Name Freq PRN Reason Stop Dose Admin Sodium Chloride 1,000 mls @ 999 mls/hr 06/19/25 05:36 06/19/25 05:55 Ns IVCONT 06/19/25 06:36 999 mls/hr .Q1H1M ONE Administration Ketorolac Tromethamine 30 mg 06/19/25 05:36 06/19/25 05:55 Ketorolac Tromethamine 30 Mg/Ml Vial IVPUSH 06/19/25 05:37 30 mg ONCE ONE Administration Ondansetron HCl 4 mg 06/19/25 05:36 06/19/25 05:55 Ondansetron Hcl 4 Mg/2 Ml Vial IVPUSH 06/19/25 05:37 4 mg ONCE ONE Administration Critical Care Time Critical Care Time Critical Care Time: Yes Total Critical Care Time: 60 Attestation: I have personally provided critical care time. Time includes review of lab data, radiology results, discussion with consultants, and monitoring for potential decompensation. Intervention performed as documented. Discharge Plan Discharge Clinical Impression: Diverticulitis Patient Disposition: Home, Self-Care Instructions: Diverticulitis (ED), Diverticulitis Diet (ED) Additional Instructions: Please follow-up with your primary care physician tomorrow. If you have any worsening or new symptoms, please return to the emergency room or call 911 Prescriptions: New levofloxacin 500 mg tablet 500 mg PO DAILY Qty: 9 0RF metronidazole 500 mg tablet 500 mg PO BID Qty: 19 0RF polyethylene glycol 3350 [Miralax] 17 gram/dose powder 17 g PO DAILY Qty: 238 0RF oxycodone 5 mg tablet 5 mg PO BID PRN (Reason: pain) Qty: 7 0RF Rx Instructions: Partial Fill upon patient request. No Action levothyroxine [Synthroid] 150 mcg tablet 150 mcg PO DAILY Qty: 90 3RF lorazepam 0.5 mg Tablet 0.5 mg PO TID PRN (Reason: Anxiety) Multivitamin 50 Plus Tablet 1 tab PO DAILY citalopram 20 mg tablet 20 mg PO DAILY simvastatin 40 mg tablet 40 mg PO BEDTIME albuterol sulfate [ProAir HFA] 90 mcg/actuation HFA aerosol inhaler 2 puff inhalation Q4-6H PRN (Reason: Shortness Of Breath Or Wheezing) Print Language: Austrian
[2025-06-19 06:00] VITALS: BP 122/61; PULSE 61; RESP 17; TEMP 37; O2SAT 96
[2025-06-19 08:03] VITALS: RESP 16
[2025-06-19 08:32] VITALS: BP 122/61; PULSE 61; RESP 17; TEMP 37; O2SAT 96
== END 2025-06-19 08:33 | disposition home or self-care (01) ==
PROVIDERS: Emergency Provider Emergency Medicine; PCP Internal Medicine
DX: K57.92 Diverticulitis of intestine, part unspecified, without perforation or abscess without bleeding (principal); R10.9 Unspecified abdominal pain
CPT/HCPCS: 36415; 74176; 80053; 81001; 83690; 85025; 96361; 96374; 96375; 99285; J1885; J2270; J2405

== ENCOUNTER → 2025-06-19 05:34 | Outpatient (BNV) | payer OTHER, SELFPAY | PROVIDERS: Emergency Provider Emergency Medicine; PCP Internal Medicine; Visit Provider Radiology Vascular & Interventional Radiology | DX: K57.32 Diverticulitis of large intestine without perforation or abscess without bleeding (principal) | CPT/HCPCS: 74176 ==

== ENCOUNTER 2025-07-31 08:53 | Outpatient (AMB) | payer OTHER, SELFPAY ==
[2025-07-31 08:53] VITALS: BP 120/78; PULSE 75; RESP 16; TEMP 36.2; O2SAT 97; BMI 29.4
--- NOTE | 2025-07-31 08:53 | MHC.PC.OV ---
Vital Signs 07/31/25 08:53 Height 5 ft 3 in Weight 166 lb 4 oz BMI 29.4 BP 120/78 Blood Pressure Location Rt brachial Position Sitting Respiration 16 Pulse 75 Pulse Source Pulse Oximeter Temp 97.2 F Temp Source Temporal Artery Scan Pulse Oximetry (%) 97 Oxygen Delivery Method Room Air Intake Visit Reasons: Establish care - transfer of care from Dr. Kebede On Site Nurse Required: No Accompanied by: Self / Same As Patient Allergies Sulfa (Sulfonamide Antibiotics) (SULFA (SULFONAMIDE ANTIBIOTICS)) Allergy (Intermediate, Verified 07/31/25 09:52) SWELLING sulfamethoxazole (From Bactrim) Adverse Reaction (Verified 07/31/25 09:52) Swelling trimethoprim (From Bactrim) Adverse Reaction (Verified 07/31/25 09:52) Swelling Medication List - Last Reconciled 07/31/25 by Cari Nunes PA-C albuterol sulfate 90 mcg/actuation (ProAir HFA) 2 puffs inhalation Q4-6H PRN amoxicillin 2,000 mg PO ONCE citalopram 20 mg PO DAILY docusate sodium (Colace) 100 mg PO DAILY levothyroxine (Synthroid) 150 mcg PO DAILY lorazepam 0.5 mg PO DAILY PRN metronidazole 500 mg PO BID ruytlktlmojl-wihcibru-sorodu (Multivitamin 50 Plus tablet) 1 tab PO DAILY naproxen 500 mg PO BID polyethylene glycol 3350 (Miralax) 17 grams PO DAILY rosuvastatin 40 mg PO DAILY Tobacco use date assessed: 07/31/25 Dental Screening Dental Screen Date: 07/31/25 Did you have a dental visit in the last 12 months?: Yes Was dental information given to patient?: Patient has dentist HPI Establish care - transfer of care from Dr. Kebede HPI Details The patient is a 55-year-old female presenting for a new patient appointment and evaluation of recent diverticulitis episode. The patient experienced severe abdominal pain and was diagnosed with diverticulitis approximately one month ago, requiring emergency room evaluation and antibiotic therapy. She reported a subsequent flare-up while still on antibiotics, which she attributes to dietary indiscretions. The patient has since been cautious with her diet to prevent recurrence. She has a history of diverticulosis, which was identified during a colonoscopy in 2021, although it was not initially communicated to her. The patient was advised to avoid certain foods that may exacerbate her condition, although she was informed that the evidence is not definitive. The patient also has internal hemorrhoids, which were discussed in the context of constipation and straining. She was advised to use stool softeners to manage her symptoms and prevent exacerbation. The patient has a history of asthma, which is exacerbated by allergies. She experienced a significant asthma exacerbation in April 2024, requiring a chest x-ray and treatment with antibiotics and steroids. The patient reports that her asthma is currently well-controlled, and she uses a CPAP machine for obstructive sleep apnea. The patient has a history of smoking, having quit 25 years ago after smoking for approximately 18 years. She was advised to consider lung cancer screening due to her smoking history. The patient has a heart murmur, which has been monitored throughout her life. She has not had a recent echocardiogram, and it was suggested to obtain one for baseline assessment. The patient is currently managing anxiety with citalopram and has been advised to follow up with a psychiatrist for further evaluation. Social History - Employment: Works for [employer] - Smoking: Quit 25 years ago after smoking for 18 years - Exercise: Engages in weight management, recently lost 25 pounds - Nutrition: Following a low-carb, low-sugar diet [facility] Medical History (Updated 07/31/25 @ 10:01 by Cari Nunes PA-C) History of mammogram (~12/28/23) Diverticulosis History of smoking 10-25 pack years FAZAL on CPAP Wears contact lenses Heart murmur Depression Anxiety Hypercholesterolemia Hypothyroid Asthma Surgical History (Updated 07/31/25 @ 10:01 by Cari Nunes PA-C) History of colonoscopy (~02/14/22) H/O umbilical hernia repair H/O dilation and curettage History of section Family History Father History of pancreatic cancer Paternal Aunt Breast cancer Social History Housing: House Alcohol intake: current Alcohol intake frequency: holidays/special occasions only Patient Tobacco Use Status: Former Tobacco user service: No Current occupational status: employed Cognitive needs: No Hearing needs: No Vision needs: Yes (rx glasses/contacts) Questionnaire PHQ-9 Over the last 2 weeks, how often have you been bothered by any of the following problems? 1. Little interest or pleasure in doing things: not at all 2. Feeling down, depressed, or hopeless: not at all 3. Trouble falling or staying asleep, or sleeping too much: not at all 4. Feeling tired or having little energy: not at all 5. Poor appetite or overeating: not at all 6. Feeling bad about yourself - or that you are a failure or have let yourself or your family down: not at all 7. Trouble concentrating on things, such as reading the newspaper or watching television: not at all 8. Moving or speaking so slowly that other people could have noticed. Or the opposite - being so fidgety or restless that you have been moving around a lot more than usual: not at all 9. Thoughts that you would be better off or of hurting yourself in some way: not at all Total score: 0 Depression Screening Interpretation: Negative Depression Screening Done: Yes 79715 - PHQ-9 Billing: Yes Source: Developed by Drs. Viet Hay, Daria Martines, Chano Awad and colleagues, with an educational brooklyn from [employer]. Thrive Questionnaire Date Thrive assessed: 07/31/25 I am a: Patient What is your living situation today?: I have a steady place to live Within the past 12 months, did the food you bought not last and you didn't have the money to get more?: Never true Within the past 12 months, did you worry whether your food would run out before you got money to buy more?: Never true Do you have trouble paying for medicines?: No Do you have trouble getting transportation to medical appointments?: No Do you have trouble paying your heating and electricity bill?: No Do you have trouble taking care of your child, family member or friend?: No Do you have trouble with day-to-day activities such as bathing, preparing meals, shopping, managing finances, etc.?: No Are you currently unemployed and looking for a job?: No Are you interested in more education?: No Please select the resources that you would like help with: None THRIVE Score: 0 AUDIT C Alcohol Use Questionnaire (AUDIT-C) 1. How often do you have a drink containing alcohol?: Never Total Score: 0 Score Reviewed/Action Taken: No KYLE-7 AMB Questionnaire KYLE-7 Date KYLE - 7 assessed: 07/31/25 Feeling nervous, anxious, or on edge: 0 = Not at all Not being able to stop or control worryin = Not at all Worrying too much about different things: 0 = Not at all Trouble relaxin = Not at all Being so restless that it is hard to sit still: 0 = Not at all Becoming easily annoyed or irritable: 0 = Not at all Feeling afraid as if something awful might happen: 0 = Not at all Total KYLE-7 score (0-4 normal; 5-9 mild; 10-14 moderate; 15-21 severe): 0 Source: Developed by Drs. Viet Hay, Daria Martines, Chano Awad and colleagues, with an educational bro[place] from [employer]. KYLE-7 Assessment Billing KYLE-7 Assessment Tool: KYLE-7 Assessment 20057 Review of Systems Const Details: - Gastrointestinal: Reports past abdominal pain, denies current pain - Respiratory: Reports asthma exacerbation in the past, denies current dyspnea - Cardiovascular: Reports heart murmur, denies chest pain - Neurological: Denies insomnia All systems reviewed & are unremarkable except as noted in HPI and below Physical exam (Primary Care) Vital Signs: Last Vital Signs Temp 97.2 F 07/31/25 08:53 Pulse 75 07/31/25 08:53 Resp 16 07/31/25 08:53 BP 120/78 07/31/25 08:53 Pulse Ox 97 07/31/25 08:53 Oxygen Delivery Method Room Air 07/31/25 08:53 Care Plan Goal for BP management: <140/90 at Goal BMI result Body Mass Index 29.4 BMI Assessment/Plan discussion: High BMI High, discussed plan: lifestyle, weight reduction, dietary, physical activity, alcohol moderation and other Tobacco/Smoking Status: Tobacco use Status Tobacco use date assessed 07/31/25 07/31/25 09:08 Patient Tobacco Use Status Former Tobacco user 07/31/25 09:08 PHQ-9: PHQ-9 Score PHQ-9: Total score 0 07/31/25 09:08 Depression Screening Interpretation: Negative Thrive Assessment: Date of Thrive Assessment Date Thrive assessed 07/31/25 07/31/25 09:08 Const Other: Appearance: Alert. Oriented X3. No acute distress. Head: Normal external exam. Normocephalic. Atraumatic. Eyes: Pupils are equal, round, and reactive to light. Extraocular movements intact. Conjunctiva and sclera normal. Eyelids normal. Ears: External auditory canal normal. Tympanic membranes normal. Throat: Pharynx normal. Uvula midline. Moist mucous membranes. Neck: Normal inspection. Neck supple. Full range of motion. No adenopathy. Thyroid Normal. No meningeal signs. No neck mass noted. Cardiovascular: Normal heart rate and rhythm. Heart sound normal. Slight heart murmur noted. Pulses normal throughout. Respiratory: No respiratory distress. Painless inspiration. Breath sounds normal. No wheezes/rales/rhonchi noted. Chest nontender. No accessory muscle usage noted or decreased air movement noted. Abdomen: Soft and nontender. Bowel sounds normal in all 4 quadrants. No distention noted. No organomegaly noted. No visible injury noted. Back: No costovertebral angle tenderness. Full range of motion noted. Skin: Skin warm and dry. Normal skin color. Normal skin turgor. No rashes/lesions/lacerations noted. Extremities: No lower extremity edema. Extremities exhibit normal range of motion. Extremities nontender. Neuro: Oriented X 3. No motor deficit. No sensory deficit. Reflexes normal. Office Procedures Flu Questionnaire Does the patient have a severe egg allergy?: No Does the patient have severe life threatening allergies?: No Does the patient have a fever or illness today?: No Has the patient ever had Guillain-[place] Syndrome?: No Has the patient ever had any past reaction to a flu shot?: No Immunizations Fluarix 4112-3724 (PF) 45 mcg (15 mcg x 3)/0.5 mL IM syringe Performing Provider: Cari Nunes PA-C [facility] [place] Administered by: Katarina Velazco CMA on 07/31/25 09:13 Dose Route Admin Location Dispensed Lot Number Expiration Date NDC Manager Behavioral 0.5 mL IM Left Deltoid 0.5 mL [id number] 05/05/26 [id number] [employer] VIS Given Date VIS Provided VIS Publication Date 07/31/25 Single Vaccine 24 Eligibility Eligibility Date Funding Source Not [facility] Eligible 07/31/25 Private Results Reviewed Results Reviewed: - Imaging: Chest x-ray showed mild streaky bibasilar opacities, possible atelectasis - Labs: Previous blood work indicated low calcium and TSH levels Coding Level of Care Code New Pt Level 4 (11765) Complex EM visit Add On G2211 Diagnoses Diverticulosis K57.90 Asthma J45.909 Heart murmur R01.1 Anxiety F41.9 Hypothyroid E03.9 FAZAL on CPAP G47.33; Z99.89 History of smoking 10-25 pack years Z87.891 Hypercholesterolemia E78.00 Additional Codes PHQ-9 - 43626 - PHQ-9 Billing: Yes ([id number]) KYLE-7 Assessment Billing - KYLE-7 Assessment Tool: KYLE-7 Assessment 82920 ([id number]) Time Spent (min) 60 Assessment & Plan Assessment & Plan (1) Diverticulosis: Code(s): K57.90 - Diverticulosis of intestine, part unspecified, without perforation or abscess without bleeding Category: Medical Plan: The patient was advised to monitor her diet carefully to prevent future episodes of diverticulitis, avoiding foods that may exacerbate her condition, although the evidence is not definitive. In case of severe symptoms, she was instructed to seek emergency care, but for mild symptoms, she could contact the clinic for a telehealth consultation and possible antibiotic prescription. (2) Asthma: Code(s): J45.909 - Unspecified asthma, uncomplicated Category: Medical Plan: Patient to continue albuterol as needed for acute exacerbations. Will refer to pulmonology for further evaluation and management. Condition is chronic and stable continue to monitor. (3) Heart murmur: Code(s): R01.1 - Cardiac murmur, unspecified Category: Medical Plan: Will refer for an echocardiogram to get baseline of heart murmur. Condition is chronic and stable. (4) Anxiety: Code(s): F41.9 - Anxiety disorder, unspecified Category: Medical Plan: Patient to continue with therapist. Patient to contact psychiatrist which she was referred to. Patient to continue citalopram 20 mg daily. Patient will have PRN Ativan 15 tablets for 30 day. Condition is chronic and stable continue to monitor. (5) Hypothyroid: Code(s): E03.9 - Hypothyroidism, unspecified Category: Medical Plan: Will repeat blood work as last TSH level was abnormal. Patient to continue levothyroxine 150 mcg. Condition is chronic and stable continue to monitor. (6) FAZAL on CPAP: Code(s): G47.33 - Obstructive sleep apnea (adult) (pediatric); Z99.89 - Dependence on other enabling machines and devices Category: Medical Plan: Patient to continue CPAP machine. Patient to be referred pulmonology for further evaluation management. Condition is chronic and stable continue to monitor. (7) History of smoking 10-25 pack years: Comment: 18 years. 1ppd. quit 25 years ago. Code(s): Z87.891 - Personal history of nicotine dependence Category: Social Hx Plan: Patient being referred to pulmonology for further evaluation management possible lung cancer screening. Condition is chronic and stable continue to monitor (8) Hypercholesterolemia: Code(s): E78.00 - Pure hypercholesterolemia, unspecified Category: Medical Plan: Patient to continue rosuvastatin 40 mg daily. Condition is chronic and stable will continue to monitor. Plan Plan Patient was informed and verbally consented to the use of an ambient scribe for clinic note documentation during this visit. 1. Diverticulitis The patient was advised to monitor her diet carefully to prevent future episodes of diverticulitis, avoiding foods that may exacerbate her condition, although the evidence is not definitive. In case of severe symptoms, she was instructed to seek emergency care, but for mild symptoms, she could contact the clinic for a telehealth consultation and possible antibiotic prescription. 2. Asthma Patient to continue albuterol as needed for acute exacerbations. Will refer to pulmonology for further evaluation and management. Condition is chronic and stable continue to monitor. 3. Heart Murmur The patient was advised to undergo an echocardiogram to establish a baseline for her heart murmur, given her history of congenital heart murmur. 4. Anxiety The patient was advised to continue her current medication, citalopram, and to follow up with a psychiatrist for further evaluation and management of her anxiety. During the visit, I discussed with the patient the importance of dietary management in preventing diverticulitis flare-ups and the potential need for antibiotics during mild episodes. We also reviewed her asthma management plan, emphasizing the use of a CPAP machine and considering a daily inhaler to prevent exacerbations. I recommended an echocardiogram to assess her heart murmur and advised her to continue her anxiety medication while seeking further psychiatric evaluation. Orders: Orders Influenza 7025-9527 Immunization Today Z23 - Encounter for immunization C Reactive Protein Today Z00.00 - Encounter for general adult medical examination without abnormal findings Lipid Panel Today Z00.00 - Encounter for general adult medical examination without abnormal findings Liver Panel Today Z00.00 - Encounter for general adult medical examination without abnormal findings TSH reflex Free T4 Today Z00.00 - Encounter for general adult medical examination without abnormal findings Magnesium Today Z00.00 - Encounter for general adult medical examination without abnormal findings Vitamin D 25-OH Total Today Z00.00 - Encounter for general adult medical examination without abnormal findings Comprehensive [place]. Panel Fast Today Z00.00 - Encounter for general adult medical examination without abnormal findings Complete Blood Count Auto Diff Today Z00.00 - Encounter for general adult medical examination without abnormal findings Hemoglobin A1c Today Z00.00 - Encounter for general adult medical examination without abnormal findings UA CC w/rflx Micro + Cult Today Z00.00 - Encounter for general adult medical examination without abnormal findings Vitamin B12 and Folate Today Z00.00 - Encounter for general adult medical examination without abnormal findings Triiodothyronine T3 Total Today E03.9 - Hypothyroidism, unspecified CA echo transthoracic complete Today R01.1 - Cardiac murmur, unspecified Referrals Pulmonology Referral G47.33 - Obstructive sleep apnea (adult) (pediatric), J45.909 - Unspecified asthma, uncomplicated, Z87.891 - Personal history of nicotine dependence, Z99.89 - Dependence on other enabling machines and devices Medications: New lorazepam 0.5 mg PO DAILY PRN 15 tabs 0RF anxiety docusate sodium (Colace) 100 mg PO DAILY 90 caps 3RF lorazepam 0.5 mg PO DAILY PRN 15 tabs 0RF anxiety Discontinued oxycodone Partial Fill upon patient request. Discontinued Reason: Doctor's Order 5 mg PO BID PRN 7 tabs 0RF pain Patient Instructions: - Monitor diet to prevent diverticulitis flare-ups. - Seek emergency care for severe symptoms, or contact the clinic for mild symptoms. - Continue using CPAP machine and consider a daily inhaler for asthma management. - Schedule an echocardiogram for heart murmur assessment. - Continue citalopram and follow up with a psychiatrist for anxiety management.
--- OUTSIDE RECORDS SUMMARY | 2025-07-31 09:32 | XMS_ITS | Patient Health Record ---
Author Organization [facility] Address [address] [place] [address] Care Team Providers Care Proposal Lead Writer Name Role Phone Yandy (RETIRED) Ganga ORELLANA Primary Care Provider Unavailable Viet Ortiz Unavailable [phone] Allergies Allergen (clinical drug ingredient) Drug/Non Drug [...] Problem Status W/U Status Risk Notes Problem [id number] Encounter for screening for malignant neoplasm of colon (Z12.11) Active confirmed Problem [id number] Preprocedural examination (Z01.818) Active confirmed Plan Of Treatment Future Test Test Name Order Date COLONOSCOPY 11/22/2018 COLONOSCOPY 01/26/2022 Insurance Providers Payer Name Payer Address Payer Phone Subscriber Number Group Number Insured Name Patient Relationship to Insured Coverage Start Date Coverage End Date MEDICAID OF [facility] [address] [place] [address] [id number] JUNI ZAMORA Self - patient is the insured Medical (General) History Medical History History ICD Code Heart murmur--does not see a demonstrator sales and does not get periodic echocardiograms Asthma Denies NH,DM,CVA,renal disease Hypothyroidism Anxiety Sleep apnea -uses a CPAP Hyperlipidemia Surgical History Surgery Date(Month/Year) C-sections D & C Umbilical Hernia [id number]. Mazzuc co
--- OUTSIDE RECORDS SUMMARY | 2025-07-31 09:32 | XMS_ITS | Patient Health Record ---
Author Organization [facility] Address [address] [place] [address] Care Team Providers Care Engineering Technical Specialist Name Role Phone Ganga Kebede MD Primary Care Provider Unavailab Bernabe Mariano Unavailable [phone] Allergies Allergen (clinical drug ingredient) Drug/Non Drug [...] W/U Status Risk Notes Problem Verruca plantaris (88046609) Verruca Plantaris (078.19) Active confirmed Problem Hallux valgus (036165304) Hallux Valgus (735.0) Active confirmed Problem Pain in limb (76396850) Pain in Limb (729.5) Active confirmed Plan Of Treatment Pending Test Test Name Order Date X ray : Foot, right 3V 08/11/2014 [id number] Destruction, -09/01/2014 81905-Dfup Destruction, 11-1909/24/2014 76487-Veup Destruction, 11-1910/22/2014 65342-Rsaz Destruction, -08/11/2014 Insurance Providers Payer Name Payer Address Payer Phone Subscriber Number Group Number Insured Name Patient Relationship to Insured Coverage Start Date Coverage End Date [facility] [address] [place] [address] [phone] [id number] Cindy Brennan Self - patient is the insured Medical (General) History Medical History History ICD Code Anxiety asthma Back,Hip,and Knee pain Chicken pox Headaches Migraines Sinus conditions Thyroid disorder Surgical History Surgery Date(Month/Year) section 1999, 2006 dilatation and curettage 2004, 2005
== END 2025-07-31 09:48 | disposition home or self-care (01) ==
LOC: HO.HMCSH 08:53
PROVIDERS: PCP Internal Medicine; Visit Provider Physician Assistant Medical
DX: K57.90 Diverticulosis of intestine, part unspecified, without perforation or abscess without bleeding (principal); J45.909 Unspecified asthma, uncomplicated; R01.1 Cardiac murmur, unspecified; F41.9 Anxiety disorder, unspecified; E03.9 Hypothyroidism, unspecified; G47.33 Obstructive sleep apnea (adult) (pediatric); Z99.89 Dependence on other enabling machines and devices; Z87.891 Personal history of nicotine dependence; E78.00 Pure hypercholesterolemia, unspecified; Z23 Encounter for immunization

== ENCOUNTER → 2025-07-31 08:53 | Outpatient (BNVA) | payer OTHER, SELFPAY | PROVIDERS: PCP Internal Medicine; Visit Provider Physician Assistant Medical | DX: K57.90 Diverticulosis of intestine, part unspecified, without perforation or abscess without bleeding (principal); Z23 Encounter for immunization; J45.909 Unspecified asthma, uncomplicated; R01.1 Cardiac murmur, unspecified; F41.9 Anxiety disorder, unspecified; E03.9 Hypothyroidism, unspecified; G47.33 Obstructive sleep apnea (adult) (pediatric); E78.00 Pure hypercholesterolemia, unspecified; Z79.899 Other long term (current) drug therapy; Z87.891 Personal history of nicotine dependence; Z99.89 Dependence on other enabling machines and devices; Z13.31 Encounter for screening for depression; Z13.39 Encounter for screening examination for other mental health and behavioral disorders | CPT/HCPCS: 90471; 90656; 96127 ==

== ENCOUNTER 2025-08-08 06:19 | Outpatient (REF) | payer OTHER, SELFPAY ==
--- OUTSIDE RECORDS SUMMARY | 2025-08-08 06:22 | XMS_ITS | Patient Health Record ---
Author Organization [facility] Address [address] [place] [address] Care Team Providers Care Materials Clerk Name Role Phone Yandy (RETIRED) Ganga ORELLANA Primary Care Provider Unavailable Viet Ortiz Unavailable [phone] Allergies Allergen (clinical drug ingredient) Drug/Non Drug [...] Problem Status W/U Status Risk Notes Problem [id number] Encounter for screening for malignant neoplasm of colon (Z12.11) Active confirmed Problem [id number] Preprocedural examination (Z01.818) Active confirmed Plan Of Treatment Future Test Test Name Order Date COLONOSCOPY 11/22/2018 COLONOSCOPY 01/26/2022 Insurance Providers Payer Name Payer Address Payer Phone Subscriber Number Group Number Insured Name Patient Relationship to Insured Coverage Start Date Coverage End Date MEDICAID OF [facility] [address] [place] [phone] [id number] JUNI ZAMORA Self - patient is the insured Medical (General) History Medical History History ICD Code Heart murmur--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 Mazzuc co
--- OUTSIDE RECORDS SUMMARY | 2025-08-08 06:22 | XMS_ITS | Patient Health Record ---
Author Organization [facility] Address [address] [place] [address] Care Team Providers Care Supervisor Of Communications Name Role Phone Ganga Kebede MD Primary Care Provider Unavailab Bernabe Mariano Unavailable [phone] Allergies Allergen (clinical drug ingredient) Drug/Non Drug [...] W/U Status Risk Notes Problem Verruca plantaris (64221376) Verruca Plantaris (078.19) Active confirmed Problem Hallux valgus (417042377) Hallux Valgus (735.0) Active confirmed Problem Pain in limb (77298564) Pain in Limb (729.5) Active confirmed Plan Of Treatment Pending Test Test Name Order Date X ray : Foot, right 3V 08/11/2014 [id number]-Uekg Destruction, -09/01/2014 88866-Cbtw Destruction, 11-1909/24/2014 62248-Sjfc Destruction, 11-1910/22/2014 78246-Sqwf Destruction, -08/11/2014 Insurance Providers Payer Name Payer Address Payer Phone Subscriber Number Group Number Insured Name Patient Relationship to Insured Coverage Start Date Coverage End Date [facility] [address] [place] [address] [id number] Cindy Brennan Self - patient is the insured Medical (General) History Medical History History ICD Code Anxiety asthma Back,Hip,and Knee pain Chicken pox Headaches Migraines Sinus conditions Thyroid disorder Surgical History Surgery Date(Month/Year) section 1999, 2006 dilatation and curettage 2004, 2005
[2025-08-08 10:15] LABS: Appearance Urine Hazy; Glucose Urine UA Negative (Negative); PH 6.0 (5.0-9.0); Specific Gravity - Urine 1.025 (1.005-1.025); UMIC TRIGGER UACC YES
[2025-08-08 10:18] LABS: MANUAL DIFF FLAG NO
[2025-08-08 10:29] LABS: Hematocrit 38.4 % (37.0-47.0); Hemoglobin 12.8 g/dl (12.0-16.0); Imm Gran Abs Auto 0.01 X10*3/uL (0.00-0.03); Imm Gran Pct Auto 0.2 % (0.0-0.4); Lymphocytes Absolute Auto 1.0 X10*3/uL (1.2-4.9); Mean Corpuscular HGB Conc 33.3 g/dl (31.0-35.0); Mean Corpuscular Hemoglobin 28.6 pg (27.0-33.0); Mean Corpuscular Volume 85.7 fL (80.0-98.0); NRBC Abs Auto 0.000 X10*3/uL (0.0-0.012); NRBC Pct Auto 0.0 /100WBC (0.0-0.2); Platelet Count 221 X10*3/uL (160-400); Red Blood Count 4.48 X10*6/uL (4.20-5.50); White Blood Count 4.1 X10*3/uL (4.8-10.8)
[2025-08-08 11:07] LABS: Alanine Aminotransferase 30 U/L (0-31); Albumin Level 4.3 g/dL (3.5-5.0); Alkaline Phosphatase 128 U/L (39-117); Anion Gap 9 (12-20); Aspartate Amino Transferase 25 U/L (5-31); Blood Urea Nitrogen 16 mg/dL (9-16); Calcium 9.5 mg/dL (8.4-10.2); Carbon Dioxide 27 mmol/L (22-29); Chloride 110 mmol/L (96-108); Cholesterol 139 mg/dL (<200); Estimated Glomerular Filt Rate > 60; HDL Cholesterol 45 mg/dL (>40); Magnesium 2.0 mg/dL (1.6-2.6); Potassium 3.9 mmol/L (3.3-5.1); Sodium 142 mmol/L (135-145); Total Protein 6.5 g/dL (6.5-8.0); Triglycerides 80 mg/dL (<150)
[2025-08-08 11:12] LABS: Folate 4.2 ng/mL (> or = 4.0); Vitamin B12 210 pg/mL (200-900)
[2025-08-08 12:05] LABS: Free T4 (Free Thyroxine) 1.39 ng/dL (0.71-1.85)
== END 2025-08-08 06:20 | disposition home or self-care (01) ==
LOC: HO.HMGCLDS 06:19
PROVIDERS: Physician Assistant Medical
DX: Z00.00 Encounter for general adult medical examination without abnormal findings (principal); Z13.1 Encounter for screening for diabetes mellitus; E03.9 Hypothyroidism, unspecified
CPT/HCPCS: 36415; 80053; 80061; 80076; 81001; 82248; 82306; 82607; 82746; 83036; 83735; 84439; 84443; 84480; 85025; 86140

== ENCOUNTER 2025-08-13 06:32 | Outpatient (REF) | payer OTHER, SELFPAY ==
--- OUTSIDE RECORDS SUMMARY | 2025-08-13 06:35 | XMS_ITS | Patient Health Record ---
Author Organization [facility] Address [address] [address] Care Team Providers Care Fleet Maintenance Foreman Name Role Phone Ganga Kebede MD Primary Care Provider Bernabe Ferro Unavailable [phone] Allergies Allergen (clinical drug ingredient) Drug/Non Drug [...] W/U Status Risk Notes Problem Verruca plantaris (07152844) Verruca Plantaris (078.19) Active confirmed Problem Hallux valgus (092235422) Hallux Valgus (735.0) Active confirmed Problem Pain in limb (03247261) Pain in Limb (729.5) Active confirmed Plan Of Treatment Pending Test Test Name Order Date X ray : Foot, right 3V 08/11/2014 [id number] Destruction, 11-1909/01/2014 [id number] Destruction, 11-1909/24/2014 [id number] Destruction, 11-1910/22/2014 [id number] Destruction, 11-1908/11/2014 Insurance Providers Payer Name Payer Address Payer Phone Subscriber Number Group Number Insured Name Patient Relationship to Insured Coverage Start Date Coverage End Date [facility] [address] [place] [address] [phone] [id number] Cindy Brennan Self - patient is the insured Medical (General) History Medical History History ICD Code Anxiety asthma Back,Hip,and Knee pain Chicken pox Headaches Migraines Sinus conditions Thyroid disorder Surgical History Surgery Date(Month/Year) section 1999, 2006 dilatation and curettage 2004, 2005
--- OUTSIDE RECORDS SUMMARY | 2025-08-13 06:35 | XMS_ITS | Patient Health Record ---
Author Organization [facility] Address [address] [place] [address] Care Team Providers Care Splunk Developer Name Role Phone Yandy (RETIRED) Ganga ORELLANA Primary Care Provider Unavailable Viet Ortiz Unavailable [phone] Allergies Allergen (clinical drug ingredient) Drug/Non Drug [...] Problem Status W/U Status Risk Notes Problem [id number] Encounter for screening for malignant neoplasm of colon (Z12.11) Active confirmed Problem [id number] Preprocedural examination (Z01.818) Active confirmed Plan Of Treatment Future Test Test Name Order Date COLONOSCOPY 11/22/2018 COLONOSCOPY 01/26/2022 Insurance Providers Payer Name Payer Address Payer Phone Subscriber Number Group Number Insured Name Patient Relationship to Insured Coverage Start Date Coverage End Date MEDICAID OF [facility] [address] [place] [address] [id number] JUNI ZAMORA Self - patient is the insured Medical (General) History Medical History History ICD Code Heart murmur--does not see a jackscrew worker and does not get periodic echocardiograms Asthma Denies [place],DM,CVA,renal disease Hypothyroidism Anxiety Sleep apnea -uses a CPAP Hyperlipidemia Surgical History Surgery Date(Month/Year) C-sections D & C Umbilical Hernia [id number]. Mazzuc co
[2025-08-13 10:58] LABS: Appearance Urine Cloudy; Glucose Urine UA Negative (Negative); PH 6.5 (5.0-9.0); Specific Gravity - Urine 1.020 (1.005-1.025)
[2025-08-13 12:09] LABS: Free T4 (Free Thyroxine) 1.33 ng/dL (0.71-1.85)
== END 2025-08-13 06:33 | disposition home or self-care (01) ==
LOC: HO.HMGCLDS 06:32
PROVIDERS: PCP Physician Assistant Medical; Visit Provider Physician Assistant Medical
DX: Z00.00 Encounter for general adult medical examination without abnormal findings (principal); Z13.29 Encounter for screening for other suspected endocrine disorder
CPT/HCPCS: 36415; 81003; 84439; 84443

== ENCOUNTER → 2025-09-18 08:00 | Outpatient (REF) | payer OTHER, SELFPAY ==
--- NOTE | 2025-09-18 08:02 | CA_ITS ---
Transthoracic Echocardiogram Patient (Last, First, Middle): Cindy Brennan, Gender: F Date of : 1970 Age: 55 Procedure Date: 09/18/2025 Procedure Type: Transthoracic Echocardiogram Location: OP Height: 160.02 cm Weight: 73.48 kg BSA: 1.77 m2 Heart Rate: 45 bpm BP: 120 / 76 mmHg Admitting Interviewer: KELLY Referring MD: Cari Nunes PA-C Client Services Analyst: [place] Prajapati MD Symptoms: R01.1 - Cardiac murmur, unspecified Study Quality: Adequate ECG Rhythm: Bradycardia Conclusions: - Essentially normal study Findings Left Ventricle Normal left ventricular size, thickness, and systolic function. The visually estimated ejection fraction is between 60-65%. Spectral Doppler is indicative of a normal filling pattern. Right Ventricle Normal right ventricular cavity size and systolic function. Atria Both atria are normal in size. Interatrial shunt cannot be excluded. Aortic Valve The aortic valve structure and function is likely normal. There is no aortic valve stenosis. There is no aortic valve regurgitation. Mitral Valve Normal mitral valve structure and function. There is trace mitral valve regurgitation. There is no mitral valve stenosis. Pulmonic Valve The pulmonic valve is likely normal. Tricuspid Valve Normal tricuspid valve structure. There is trace tricuspid valve regurgitation. The right ventricular systolic pressure is normal. The right ventricular systolic pressure is 26 mmHg. Normal right atrial pressure. There is no evidence of pulmonary hypertension. Great Vessels All visible segments of the aorta are normal in size. The pulmonary artery was not well visualized. There is no dilatation of the ascending aorta measuring 3.20 cm. Venous The inferior vena cava is normal in size and collapses greater than 50% with inspiration. Pericardium/Pleural There is no evidence of pericardial effusion. Prior Study Comparison No significant change compared to prior study dated: 08/10/2018. Measurements 2D Linear Measurements IVSd: 0.62 0.6-0.9/0.6-1.0 cm LVIDd: 5.22 3.9-5.3/4.2-5.9 cm LVIDd Index: 2.95 2.4-3.2/2.2-3.1 cm/m2 LVIDs: 3.82 2.0-3.6 cm LVPWd: 0.72 0.7-1.1 cm LV Mass: 145.67 67-162/88-224 g LV Mass Index: 82.30 43-95/49-115 g/m2 LVOT Diam: 2.10 3.0+(-)1.3 cm 2D Systolic Function EF 4C: 63.10 >55% EF 2C: 65.00 >55% EF BiP: 64.20 >55% Mitral Valve MV Pk E: 0.78 MV PK A: 0.63 MV Decel Time: 245.00 E/A: 1.20 E'Lateral: 9.14 E'Medial: 6.74 E/E' Med: 11.60 E/E' Lat: 8.60 PHT: 72.00 MVA PHT: 3.06 Decel [place]: 3.19 Aortic Valve AoV Pk Jose: 1.15 AoV Pk Grad: 5.00 NHAN: 3.25 LVOT LVOT Pk Jose: 1.09 LVOT Mn Jose: 0.74 LVOT VTI: 0.27 LVOT Pk Grad: 5.00 LVOT Mn Grad: 3.00 LVOT Diam: 2.10 LVOT Area: 3.46 Diastolic Function MV Pk E: 0.78 MV Pk A: 0.63 E/A: 1.20 E'Medial: 6.74 E/E' Med: 11.60 E' Laterial: 9.14 E/E' Lat: 8.60 Right Ventricle TAPSE (mm): 25.60 TVS' Jose: 10.40 Tricuspid Valve TR Pk Jose: 2.10 TR Pk Grad: 18.00 RA Press: 8.00 RVSP: 26.00 Great Vessels Aorta Sinus of Valsalva: 3.30 2.0-3.5 cm Ao Asc: 3.20 2.1-3.4 cm Ao Arch: 2.70 Pulmonary Veins Pulm Vein S/D 1.60 Pulmonary Valve PV Pk Jose: 0.72 Peak PV Grad: 2.00 Updated in Other Vendor System with Status of Final [place] Prajapati MD electronically signed on 09/18/2025 5:24:05 PM with status of Final
--- OUTSIDE RECORDS SUMMARY | 2025-09-18 08:07 | XMS_ITS | Patient Health Record ---
Author Organization [facility] Address [address] [place] [address] Care Team Providers Care Gun Mechanic Name Role Phone Yandy (RETIRED) Ganga ORELLANA Primary Care Provider Unavailable Viet Ortiz Unavailable [phone] Allergies Allergen (clinical drug ingredient) Drug/Non Drug [...] TAKE 1 TABLET BY MOUTH EVERY DAY Oral; Duration: 90 Active Simvastatin Active Levothyroxine Sodium Active [...] Problem Status W/U Status Risk Notes Problem Screening for malignant neoplasm of colon (318925371) Encounter for screening for malignant neoplasm of colon (Z12.11) Active confirmed Problem Preprocedural examination (068381607359698) Preprocedural examination (Z01.818) Active confirmed Plan Of Treatment Future Test Test Name Order Date COLONOSCOPY 11/22/2018 COLONOSCOPY 01/26/2022 Insurance Providers Payer Name Payer Address Payer Phone Subscriber Number Group Number Insured Name Patient Relationship to Insured Coverage Start Date Coverage End Date [facility] [address] [place] [address] [id number] JUNI ZAMORA Self - patient is the insured Medical (General) History Medical History History ICD Code Heart murmur--does not see a hydroelectric component machinist and does not get periodic echocardiograms Asthma Denies [place],DM,CVA,renal disease Hypothyroidism Anxiety Sleep apnea -uses a CPAP Hyperlipidemia Surgical History Surgery Date(Month/Year) C-sections D & C 2004/2005 Umbilical Hernia [id number]. Mazzuc co
--- OUTSIDE RECORDS SUMMARY | 2025-09-18 08:07 | XMS_ITS | Patient Health Record ---
Author Organization [facility] Address [address] [place] [address] Care Team Providers Care Painter Plate Name Role Phone Ganga Kebede MD Primary Care Provider Bernabe Ferro Unavailable [phone] Allergies Allergen (clinical drug ingredient) Drug/Non Drug [...] W/U Status Risk Notes Problem Verruca plantaris (73644777) Verruca Plantaris (078.19) Active confirmed Problem Hallux valgus (975953377) Hallux Valgus (735.0) Active confirmed Problem Pain in limb (01966378) Pain in Limb (729.5) Active confirmed Plan Of Treatment Pending Test Test Name Order Date X ray : Foot, right 3V 08/11/2014 [id number] Destruction, 11-1909/01/2014 [id number] Destruction, 11-1909/24/2014 [id number] Destruction, 11-1910/22/2014 [id number]-Otup Destruction, 11-1908/11/2014 Insurance Providers Payer Name Payer Address Payer Phone Subscriber Number Group Number Insured Name Patient Relationship to Insured Coverage Start Date Coverage End Date [facility] [address] [place] [address] [id number] Cindy Brennan Self - patient is the insured Medical (General) History Medical History History ICD Code Anxiety asthma Back,Hip,and Knee pain Chicken pox Headaches Migraines Sinus conditions Thyroid disorder Surgical History Surgery Date(Month/Year) section 1999, 2006 dilatation and curettage 2004, 2005
--- OUTSIDE RECORDS SUMMARY | 2025-09-18 08:07 | XMS_ITS | Continuity of Care Document ---
Author Organization [facility] Address [address] [address] Insurance Providers Payer Plan Claims Address Claims Phone Policy Number Group Number Relation Employer Guarantor Name Guarantor Guarantor Address Guarantor Phone [employer] [address], [place] [address] tel:[phone] [id number] Self Cindy Brennan [address] [place] [address] [facility] [id number] Self Cindy Brennan [address] [place] [id number] MEDIC AID OF [facility] [address], [place] [address] tel:[phone] [id number] Self Cindy Brennan [address] [place] [address] Problems Condition ICD9 code ICD10 code SNOMED code Start Date End Date S tatus Encounter for screening for other metabolic disorders Z13.228 Results No Results Allergies, adverse reactions, alerts No known allergies and adverse reactions Medications No administered medications reported Vital Signs No vital signs reported Social History No smoking Hx information available
== END ==
LOC: HO.CARD 08:00
PROVIDERS: PCP Physician Assistant Medical; Visit Provider Physician Assistant Medical
DX: R01.1 Cardiac murmur, unspecified (principal)
CPT/HCPCS: 93306

== ENCOUNTER → 2025-09-18 08:02 | Outpatient (BNV) | payer OTHER, SELFPAY | PROVIDERS: PCP Physician Assistant Medical; Visit Provider Internal Medicine Cardiovascular Disease | DX: R01.1 Cardiac murmur, unspecified (principal) | CPT/HCPCS: 93306 ==

== ENCOUNTER 2025-10-09 07:55 | Outpatient (AMB) | payer OTHER, SELFPAY ==
--- OUTSIDE RECORDS SUMMARY | 2025-10-09 07:58 | XMS_ITS | Patient Health Record ---
Author Organization [facility] Address [address] [facility] [place] [address] Care Team Providers Care Md Ophthalmologist Name Role Phone Ganga Kebede MD Primary Care Provider Bernabe Ferro Unavailable [phone] Allergies Allergen (clinical drug ingredient) Drug/Non Drug [...] W/U Status Risk Notes Problem Verruca plantaris (73564014) Verruca Plantaris (078.19) Active confirmed Problem Hallux valgus (257611815) Hallux Valgus (735.0) Active confirmed Problem Pain in limb (93824431) Pain in Limb (729.5) Active confirmed Plan Of Treatment Pending Test Test Name Order Date X ray : Foot, right 3V 08/11/2014 [id number] Destruction, 11-1909/01/2014 [id number] Destruction, 11-1909/24/2014 [id number] Destruction, 11-1910/22/2014 [id number] Destruction, 11-1908/11/2014 Insurance Providers Payer Name Payer Address Payer Phone Subscriber Number Group Number Insured Name Patient Relationship to Insured Coverage Start Date Coverage End Date [facility] [address] [place] [address] [id number] Cindy Brennan Self - patient is the insured Medical (General) History Medical History History ICD Code Anxiety asthma Back,Hip,and Knee pain Chicken pox Headaches Migraines Sinus conditions Thyroid disorder Surgical History Surgery Date(Month/Year) section 1999, 2006 dilatation and curettage 2004, 2005
--- OUTSIDE RECORDS SUMMARY | 2025-10-09 07:59 | XMS_ITS | Patient Health Record ---
Author Organization [facility] Address [address] [place] [address] Care Team Providers Care Barbering Instructor Name Role Phone Yandy (RETIRED) Ganga ORELLANA Primary Care Provider Unavailable Viet Ortiz Unavailable [phone] Allergies Allergen (clinical drug ingredient) Drug/Non Drug Allergy documented on EMR Reaction Allergy Type Onset Date Status sulfacetamide Sulfacetamide Sodium Unknown Drug Allergy Active Reason For Referral No Information Medications Medication SIG (Take, Route, Frequency, Duration) Notes Start Date End Date Status Multivitamin Adults - Tablet as directed Orally Active LORazepam 0.5 MG Tablet 1 tablet as need ed Orally every 6 hrs Not-Taking/NV N Rosuvastatin Calcium 40 MG Tablet TAKE 1 TABLET BY MOUTH EVERY DAY Oral; Duration: 90 Active Simvastatin Active Levothyroxine Sodium Active Citalopram Hydrobromide Active Proventil HFA Active Immunizations Vaccine Route Administration Date Status Comme nts Influenza Unknown 09/06/2018 Administered Influenza Unknown 11/15/2021 Administered Social History Tobacco Use: Social History Observation Description Date Details (start date - stop date) Former Smoker NA - NA Social History Drugs/Alcohol: Social Info Question Answer Notes Alcohol Screen Did you have a drink containing alcohol in the past year? Yes How often did you have a drink containing alcohol in the past year? Monthly or less (1 point) How many drinks did you have on a typical day when you were drinking in the past year? 1 or 2 drinks (0 point) Points 1 Interpretation Negative Tobacco Use: Social Info Question Answer Notes Tobacco Use/Smoking Patient is a former smoker How long has it been since you last smoked? 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: Nonsmoker; no sig alcohol Nonsmoker; no sig alcohol Problems Problem Type SNOMED Code ICD Code Onset Dates Problem Status W/U Status Risk Notes Problem Screening for malignant neoplasm of colon (318219582) Encounter for screening for malignant neoplasm of colon (Z12.11) Active confirmed Problem Preprocedural examination (359478206888246) Preprocedural examination (Z01.818) Active confirmed Plan Of Treatment Future Test Test Name Order Date COLONOSCOPY 11/22/2018 COLONOSCOPY 01/26/2022 Insurance Providers Payer Name Payer Address Payer Phone Subscriber Number Group Number Insured Name Patient Relationship to Insured Coverage Start Date Coverage End Date [facility] [address] [place] [phone] [id number] JUNI ZAMORA Self - patient is the insured Medical (General) History Medical History History ICD Code Heart murmur--does not see a gift packer and does not get periodic echocardiograms Asthma Denies [place],DM,CVA,renal disease Hypothyroidism Anxiety Sleep apnea -uses a CPAP Hyperlipidemia Surgical History Surgery Date(Month/Year) C-sections D & C Umbilical Hernia [id number]. Mazzuc co
[2025-10-09 08:04] VITALS: BP 102/66; PULSE 58; O2SAT 96; BMI 29.5
--- NOTE | 2025-10-09 08:04 | MHC.OFFVIS ---
Vital Signs 10/09/25 08:04 Height 5 ft 3 in Weight 166 lb 7.184 oz BMI 29.5 BP 102/66 Blood Pressure Location Lt brachial Position Sitting Pulse 58 Pulse Source Pulse Oximeter Pulse Oximetry (%) 96 Oxygen Delivery Method Room Air Intake Visit Reasons: Thyrotoxicosis, unspecified without thyrotoxic cri Intake Note: NEW Patient presents today to establish care for Thyrotoxixosis. Rug Scratcher Required: No Accompanied by: Self / Same As Patient Allergies Sulfa (Sulfonamide Antibiotics) (SULFA (SULFONAMIDE ANTIBIOTICS)) Allergy (Intermediate, Verified 10/09/25 08:09) SWELLING sulfamethoxazole (From Bactrim) Adverse Reaction (Verified 10/09/25 08:09) Swelling trimethoprim (From Bactrim) Adverse Reaction (Verified 10/09/25 08:09) Swelling HPI Comments Details: 55 years old female hypothyroidism, diverticulosis, FAZAL on CPAP, asthma, hypercholesterolemia, depression/anxiety, seen in the office for initial evaluation and management of hypothyroidism. The patient was diagnosed with hypothyroidism in the late after experiencing symptoms such as hair loss, facial puffiness, and fatigue. The diagnosis was confirmed through blood tests, as the patient's mother also has hypothyroidism, suggesting a familial link. The patient has been on levothyroxine since diagnosis, with doses ranging from 110 mcg to 175 mcg. Currently, the patient is on 125 mcg, reduced from 150 mcg, due to recent bloodwork indicating excessive medication levels. This adjustment was made approximately one month ago. The patient has experienced a weight loss of 22 pounds over the past three months, which might have influenced the levothyroxine dose adjustment. Current symptoms include fatigue, hair thinning, anxiety, and occasional heart palpitations, though these have not improved since the dose change. The patient works two jobs, contributing to tiredness, and has experienced recent diverticulitis. The patient does not take biotin supplements and takes levothyroxine in the morning alongside rosuvastatin and citalopram. Physical exam: General: Well appearing. NAD. Not Cushingoid or Acromegalic Neck/Thyroid: Thyroid not palpable, no nodules. CV: RRR, no murmur. No edema. Resp:Lungs clear to auscultation bilaterally Abdomen: Soft, nontender. nondistended Extremities/Neuro: No weakness or tremor of outstretched hands Laboratory Tests 11/28/22 02/24/2325 06:49 06:50 06:20 TSH 0.84 0.67 < 0.01 L Free T4 0.86 1.04 1.37 Total T3 08/08/25 08/13/25 06:30 06:50 TSH < 0.01 L < 0.01 L Free T4 1.39 1.33 Total T3 94 PFSH Medical History (Updated 10/09/25 @ 08:32 by Tristan Waters MD) Hypothyroid History of mammogram (~12/28/23) Diverticulosis History of smoking 10-25 pack years FAZAL on CPAP Wears contact lenses Heart murmur Depression Anxiety Hypercholesterolemia Asthma Surgical History (Updated 07/31/25 @ 10:01 by Cari Nunes PA-C) History of colonoscopy (~02/14/22) H/O umbilical hernia repair H/O dilation and curettage History of section Family History Father History of pancreatic cancer Paternal Aunt Breast cancer Social History Housing: House Alcohol intake: current Alcohol intake frequency: holidays/special occasions only Patient Tobacco Use Status: Former Tobacco user service: No Current occupational status: employed Cognitive needs: No Hearing needs: No Vision needs: Yes (rx glasses/contacts) Physical Exam Vital Signs: Last Vital Signs Pulse 58 10/09/25 08:04 BP 102/66 10/09/25 08:04 Pulse Ox 96 10/09/25 08:04 Oxygen Delivery Method Room Air 10/09/25 08:04 BMI result Body Mass Index 29.5 Assessment & Plan Assessment & Plan (1) Hypothyroid: Code(s): E03.9 - Hypothyroidism, unspecified Category: Medical Qualifiers: Hypothyroidism type: acquired Qualified Code(s): E03.9 - Hypothyroidism, unspecified Plan: Patient has hypothyroidism, 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 Plan: - Adjust levothyroxine dose based on upcoming lab results. - Monitor TSH levels in 6-8 weeks post-dose adjustment. - Review medication timing to ensure levothyroxine is taken on an empty stomach. - Slot Tag Inserter on the impact of weight changes on medication doses. - Schedule follow-up for 3 months to review lab results and adjust treatment as needed. - Educate about the potential non-endocrine causes of fatigue and hair thinning, including menopause-related changes. Patient Instructions: - Continue taking levothyroxine as prescribed, ensuring it's taken on an empty stomach. - Avoid biotin supplements at least five days before any thyroid function test. - Schedule and complete TSH lab work six weeks after dose change. - Notify the clinic if symptoms worsen or new symptoms develop. - Follow a balanced diet with adequate iodine intake, avoiding excess supplements. Coding Level of Care Code Complex visit Add On G2211 Diagnoses Acquired hypothyroidism E03.9 Hypothyroidism type: acquired
== END 2025-10-09 08:27 | disposition home or self-care (01) ==
LOC: HO.ENCR 07:55
PROVIDERS: PCP Physician Assistant Medical; Visit Provider Student in an Organized Health Care Education/Training Program
DX: E03.9 Hypothyroidism, unspecified (principal)
CPT/HCPCS: 99214; G2211

== ENCOUNTER 2025-10-14 14:14 | Outpatient (AMB) | payer OTHER, SELFPAY ==
--- NOTE | 2025-10-14 14:18 | MHC.OFFVIS ---
Vital Signs 10/14/25 14:20 Height 5 ft 3 in Weight 165 lb BMI 29.2 BP 110/68 Blood Pressure Location Rt brachial Position Sitting Pulse 60 Pulse Source Pulse Oximeter Pulse Oximetry (%) 96 Oxygen Delivery Method Room Air Intake Visit Reasons: Asthma/FAZAL Medical Information Officer Required: No Commercial Cleaner: Commercial Cleaner offered & declined Accompanied by: Self / Same As Patient Allergies Sulfa (Sulfonamide Antibiotics) (SULFA (SULFONAMIDE ANTIBIOTICS)) Allergy (Intermediate, Verified 10/14/25 14:23) SWELLING sulfamethoxazole (From Bactrim) Adverse Reaction (Verified 10/14/25 14:23) Swelling trimethoprim (From Bactrim) Adverse Reaction (Verified 10/14/25 14:23) Swelling Medication List - Last Reconciled 10/14/25 by Kiki Tee LPN albuterol sulfate 90 mcg/actuation (ProAir HFA) 2 puffs inhalation Q4-6H PRN amoxicillin 2,000 mg PO ONCE citalopram 20 mg PO DAILY docusate sodium (Colace) 100 mg PO DAILY levothyroxine 125 mcg PO DAILY 6 weeks lorazepam 0.5 mg PO DAILY PRN metronidazole 500 mg PO BID fajwhrqpekaj-nleaglsi-coddya (Multivitamin 50 Plus tablet) 1 tab PO DAILY naproxen 500 mg PO BID polyethylene glycol 3350 (Miralax) 17 grams PO DAILY rosuvastatin 40 mg PO DAILY HPI Comments Details: Cindy a pleasant 55-year-old female, former 15 pack-year smoker, quit 20+ years ago with underlying asthma and FAZAL on CPAP. She was referred by PCP for pulmonary evaluation. She was diagnosed with asthma at age 16 and reports that her symptoms have worsened over the last couple of years. Symptoms include chest heaviness, intermittent shortness of breath, a cough that is sometimes dry and sometimes related to allergies, and persistent chest tightness. She denies any wheezing. Approximately two years ago, she experienced a severe asthma exacerbation after a chest cold and reports recurrent respiratory infections, typically in May and the winter, with a slow recovery and severe cough. She has only ever used an albuterol rescue inhaler, with usage varying from daily for a month to not at all for a month, and has never been on a daily controller medication. The last time she required steroids was likely around April 2024 for this episode. The patient reports severe allergies to numerous triggers, including perfumes, cats, trees, grasses, weeds, dust, and mold. She has a dog, two cats, and a bearded dragon at home. She has a history of obstructive sleep apnea, diagnosed via a home study, and uses a CPAP machine consistently, which she finds very helpful. Her machine settings have not been checked or adjusted since she first received it. She is a former smoker, having quit over 20 years ago after smoking a pack a day for about 15 years. Her daughter also has asthma. - DIAGNOSTICS: A home sleep study from April 2021 revealed moderate to severe obstructive sleep apnea, with an AHI of 18 events/hour, increasing to 27 events/hour in the supine position, without significant oxygen desaturation. COUNT INCLUDES THE [facility] Medical History (Updated 10/14/25 @ 14:36 by Nusrat Rao NP) Hypothyroid History of mammogram (~12/28/23) Diverticulosis History of smoking 10-25 pack years FAZAL on CPAP Wears contact lenses Heart murmur Depression Anxiety Hypercholesterolemia Asthma Surgical History History of colonoscopy (~02/14/22) H/O umbilical hernia repair H/O dilation and curettage History of section Family History Father History of pancreatic cancer Paternal Aunt Breast cancer Social History (Updated 10/14/25 @ 14:24 by Kiki Tee LPN) Housing: House Alcohol intake: current Alcohol intake frequency: holidays/special occasions only Patient Tobacco Use Status: Former Tobacco user Cigarette Packs Per Day: 20 Years Smoked: 15 yrs service: No Current occupational status: employed Cognitive needs: No Hearing needs: No Vision needs: Yes (rx glasses/contacts) Review of Systems Narrative Const Denies chills, Denies excessive sweating, Denies fever(s), Denies headache(s) and Denies night sweats Eyes Denies dry eyes and Denies irritation ENT Reports Normal hearing present, Denies headache(s), Denies nasal congestion, Denies nasal discharge and Denies sore throat Card Denies chest pain, Denies chest pain at rest, Denies chest pain with activity, Denies claudication, Denies leg edema, Denies orthopnea and Denies paroxysmal nocturnal dyspnea Resp Denies chest congestion, Denies excessive phlegm production, Denies pain on inspiration, Denies pain with cough, Denies stridor and Denies wheezing Musc Denies myalgias Neuro Reports Normal hearing present and Denies headache(s) Endo Denies excessive sweating [place]/Lymph Denies lymphadenopathy Aller/Immun Denies wheezing Physical Exam Exam Exam: Vital Signs: Last Vital Signs Pulse 60 10/14/25 14:20 BP 110/68 10/14/25 14:20 Pulse Ox 96 10/14/25 14:20 Oxygen Delivery Method Room Air 10/14/25 14:20 BMI result Body Mass Index 29.2 Const General: cooperative, healthy appearing, comfortable, no acute distress, well developed and alert Orientation/consciousness: patient oriented x3 Limitations: no limitations HEENT Head: Yes normal to inspection, Yes normocephalic and Yes atraumatic Ears: hearing grossly normal bilaterally and external ears normal Eyes General: appearance normal, both eyes and all related structures Eyelids: Yes eyelids normal Sclerae: sclerae normal EOM: EOMs intact bilaterally Neck Neck: Yes normal visual inspection and Yes no lymphadenopathy Lymphatic: no lymphadenopathy noted Chest Chest palpation & inspection: normal inspection of the chest Resp Effort & Inspection: normal respiratory effort, able to speak in complete sentences, no audible wheezes, no cough, no stridor, not tachypneic, no tripod positioning and no use of accessory muscles Auscultation: clear to auscultation bilaterally Cardio Jugular venous distension: no JVD Rate: regular rate Rhythm: regular rhythm Skin Other: warm, dry General skin exam: no rashes or lesions noted Neuro General: patient oriented x3 Cranial nerves: Yes Normal hearing present Cognition (Neuro): normal cognition Gait exam (Neuro): Normal gait present Extrem General: Yes normal to inspection, Yes capillary refill normal, Yes no clubbing, cyanosis or edema and Yes no pedal edema Psych Appearance: grossly normal and well kempt Speech and movement: Normal speech and movement present and Clear speech present Affect: normal affect Attitude: cooperative Thought process: Normal thought process present Thought content: Normal thought content present Insight: Good insight present (Psych) Judgement: Good judgement present (Psych) Assessment & Plan Assessment & Plan (1) Asthma: Code(s): J45.909 - Unspecified asthma, uncomplicated Category: Medical (2) Cough: Code(s): R05.9 - Cough, unspecified Category: Medical (3) FAZAL on CPAP: Code(s): G47.33 - Obstructive sleep apnea (adult) (pediatric); Z99.89 - Dependence on other enabling machines and devices Category: Medical (4) Environmental allergies: Code(s): Z91.09 - Other allergy status, other than to drugs and biological substances Category: Medical Plan Discussed the patient's history of asthma and her persistent symptoms, particularly chest tightness, which suggest a need for better control. Recommended starting a once-daily steroid inhaler, Arnuity, for preventative management, and she was agreeable to this plan. Explained the potential side effect of oral thrush and the importance of rinsing her mouth after use. Also advised her to call the office if insurance coverage for the inhaler is an issue, as alternatives are available. Reviewed proper inhaler technique for all devices Will order PFT, CXR, and an allergy blood test to identify specific triggers. Regarding her CPAP, explained that we would send an order to her supply company to gain access to her machine's data to ensure it is working effectively for her, which she agreed to. DME is [employer]. A follow-up visit is planned in 8-10 weeks to review test results and assess her response to the new medication. All questions were answered and patient is in agreement of plan. Patient Instructions - Start taking the new once-daily inhaler as prescribed to help prevent your asthma symptoms. - Remember to rinse your mouth out with water after each use to prevent a mouth infection. - If your new inhaler is too expensive or not covered by your insurance, please call our office, as there are likely other options. - You can continue to use your albuterol inhaler for any sudden breathing problems. - The hospital will call you to schedule a breathing test. - You will need to get bloodwork done for allergy testing. - A new chest x-ray has been ordered for you, which you can get done on the same day as your breathing test. - We will contact your CPAP company, [employer], to get information from your machine to make sure it's working well for you. - Please schedule a follow-up appointment in our office in about 8 to 10 weeks. - Call us sooner if your symptoms get worse or if you have any questions or problems with your medications. Patient was informed and verbally consented to the use of an ambient scribe for clinic note documentation during this visit. Orders: Orders Resp Allergy Profile Region I Today Z91.09 - Other allergy status, other than to drugs and biological substances XR chest 2V Today R05.9 - Cough, unspecified Complete Blood Count Auto Diff Today Z91.09 - Other allergy status, other than to drugs and biological substances Immunoglobulin E Today Z91.09 - Other allergy status, other than to drugs and biological substances PFT pulmonary function test Today J45.909 - Unspecified asthma, uncomplicated Medications: New fluticasone furoate 100 mcg/actuation (Arnuity Ellipta) 1 inh inhalation DAILY 30 ea 2RF Coding Level of Care Code New Pt Level 4 (78218) Diagnoses Asthma J45.909 Cough R05.9 FAZAL on CPAP G47.33; Z99.89 Environmental allergies Z91.09
[2025-10-14 14:20] VITALS: BP 110/68; PULSE 60; O2SAT 96; BMI 29.2
== END 2025-10-14 15:14 | disposition home or self-care (01) ==
LOC: HO.HPSW 14:14
PROVIDERS: PCP Physician Assistant Medical; Referring Provider Physician Assistant Medical; Visit Provider Nurse Practitioner Family
DX: J45.909 Unspecified asthma, uncomplicated (principal); R05.9 Cough, unspecified; G47.33 Obstructive sleep apnea (adult) (pediatric); Z99.89 Dependence on other enabling machines and devices; Z91.09 Other allergy status, other than to drugs and biological substances
CPT/HCPCS: 99204

== ENCOUNTER 2025-10-14 14:14 | Outpatient (REF) | payer OTHER, SELFPAY ==
[2025-10-14 18:06] LABS: MANUAL DIFF FLAG NO
[2025-10-14 18:21] LABS: Hematocrit 41.2 % (37.0-47.0); Hemoglobin 13.2 g/dl (12.0-16.0); Imm Gran Abs Auto 0.01 X10*3/uL (0.00-0.03); Imm Gran Pct Auto 0.2 % (0.0-0.4); Lymphocytes Absolute Auto 1.1 X10*3/uL (1.2-4.9); Mean Corpuscular HGB Conc 32.0 g/dl (31.0-35.0); Mean Corpuscular Hemoglobin 28.2 pg (27.0-33.0); Mean Corpuscular Volume 88.0 fL (80.0-98.0); NRBC Abs Auto 0.000 X10*3/uL (0.0-0.012); NRBC Pct Auto 0.0 /100WBC (0.0-0.2); Platelet Count 226 X10*3/uL (160-400); Red Blood Count 4.68 X10*6/uL (4.20-5.50); White Blood Count 4.5 X10*3/uL (4.8-10.8)
--- OUTSIDE RECORDS SUMMARY | 2025-10-14 22:08 | XMS_ITS | Patient Health Record ---
Author Organization [facility] Address [address] [place] [address] Care Team Providers Care Warehouse Order Puller Name Role Phone Yandy (RETIRED) Ganga ORELLANA Primary Care Provider Unavailable Viet Ortiz Unavailable [phone] Allergies Allergen (clinical drug ingredient) Drug/Non Drug Allergy documented on EMR Reaction Allergy Type Onset Date Status sulfacetamide Sulfacetamide Sodium Unknown Drug Allergy Active Reason For Referral No Information Medications Medication SIG (Take, Route, Frequency, Duration) Notes Start Date End Date Status Multivitamin Adults - Tablet as directed Orally Active LORazepam 0.5 MG Tablet 1 tablet as need ed Orally every 6 hrs Not-Taking/MS N Rosuvastatin Calcium 40 MG Tablet TAKE [...] 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: Nonsmoker; no sig alcohol Nonsmoker; no sig alcohol Problems Problem Type SNOMED Code ICD Code Onset Dates Problem Status W/U Status Risk Notes Problem Screening for malignant neoplasm of colon (089868836) Encounter for screening for malignant neoplasm of colon (Z12.11) Active confirmed Problem Preprocedural examination (060344036800563) Preprocedural examination (Z01.818) Active confirmed Plan Of Treatment Future Test Test Name Order Date COLONOSCOPY 11/22/2018 COLONOSCOPY 01/26/2022 Insurance Providers Payer Name Payer Address Payer Phone Subscriber Number Group Number Insured Name Patient Relationship to Insured Coverage Start Date Coverage End Date [facility] [address] [place] [address] [id number] JUNI ZAMORA Self - patient is the insured Medical (General) History Medical History History ICD Code Heart murmur--does not see a geriatric case manager and does not get periodic echocardiograms Asthma Denies ND,DM,CVA,renal disease Hypothyroidism Anxiety Sleep apnea -uses a CPAP Hyperlipidemia Surgical History Surgery Date(Month/Year) C-sections D & C Umbilical Hernia [id number]. Mazzuc co
--- OUTSIDE RECORDS SUMMARY | 2025-10-14 22:08 | XMS_ITS | Continuity of Care Document ---
Author Organization [facility] Address [address] [address] Insurance Providers Payer Plan Claims Address Claims Phone Policy Number Group Number Relation Employer Guarantor Name Guarantor Guarantor Address Guarantor Phone [employer] [address], [place] [address] tel:[phone] [id number] Self Cindy Brennan [address] [place] [address] [facility] [id number] Self Cindy Brennan [address] [place] [address] MEDIC AID OF [facility] [address], [place] [address] tel:[phone] Self Cindy Brennan [address] [place] [address] Problems Condition ICD9 code ICD10 code SNOMED code Start Date End Date S tatus Encounter for screening for other metabolic disorders Z13.228 Results No Results Allergies, adverse reactions, alerts No known allergies and adverse reactions Medications No administered medications reported Vital Signs No vital signs reported Social History No smoking Hx information available
--- OUTSIDE RECORDS SUMMARY | 2025-10-14 22:08 | XMS_ITS | Patient Health Record ---
Author Organization [facility] Address [address] [facility] [place] [address] Care Team Providers Care Film Processor Name Role Phone Ganga Kebede MD Primary Care Provider Bernabe Ferro Unavailable [phone] Allergies Allergen (clinical drug ingredient) Drug/Non Drug [...] W/U Status Risk Notes Problem Verruca plantaris (82665793) Verruca Plantaris (078.19) Active confirmed Problem Hallux valgus (781252539) Hallux Valgus (735.0) Active confirmed Problem Pain in limb (00442859) Pain in Limb (729.5) Active confirmed Plan Of Treatment Pending Test Test Name Order Date X ray : Foot, right 3V 08/11/2014 [id number] Destruction, 11-1909/01/2014 [id number] Destruction, 11-1909/24/2014 [id number] Destruction, 11-1910/22/2014 [id number] Destruction, 11-1908/11/2014 Insurance Providers Payer Name Payer Address Payer Phone Subscriber Number Group Number Insured Name Patient Relationship to Insured Coverage Start Date Coverage End Date [facility] [address] [place] [address] [id number] Cindy Brennan Self - patient is the insured Medical (General) History Medical History History ICD Code Anxiety asthma Back,Hip,and Knee pain Chicken pox Headaches Migraines Sinus conditions Thyroid disorder Surgical History Surgery Date(Month/Year) section 1999, 2006 dilatation and curettage 2004, 2005
--- OUTSIDE RECORDS SUMMARY | 2025-10-14 22:08 | XMS_ITS | Patient Health Record ---
Author Organization [facility] Address [address] [place] [address] Care Team Providers Care Inclined Railway Operator Name Role Phone CARINE SALES MD Primary Care Provider UnavailASHLY Valdez Unavailable [phone] Allergies Allergen (clinical drug ingredient) Drug/Non Drug Allergy documented on EMR Reaction Allergy Type Onset Date Status Substance with sulfonamide structure and antibacterial mechanism of action (substance) Sulfa Antibiotics Unknown Drug Allergy Active Reason For Referral No Information Medications Medication SIG (Take, Route, Frequency, Duration) Notes Start Date End Date Status Mirena (52 MG) 20 MCG/24HR Intrauterine Device 1 ea by intrauterine administration once; Duration: 1 dose(s) Active Levothyroxine Sodium 112 MCG Tablet 1 tab(s) orally once a day Active Citalopram Hydrobromide 20 MG Tablet 1 tab(s) orally once a day; Duration: 30 day(s) Active PRO AIR 90 MCG MDI 2 PUFFS QID PRN; Duration: 90 DAYS *Please review for potential replacement for e-prescription and drug interaction check* Active Simvastatin 40 MG Tablet 1 tab(s) orally once a day in AM Active Social History Tobacco Use: Social History Observation Description Date Details (start date - stop date) Former Smoker NA - NA Social History Tobacco Use: Social Info Question Answer Notes Smoking Are you a: former smoker When did you stop Smoking ? 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 alcohol use: yes 1 drink per week drug use: no Coffee/Tea/Soda: yes 3 decaf per day Marital Status single Problems Problem Type SNOMED Code ICD Code Onset Dates Problem Status W/U Status Risk Notes Problem Impaired fasting glycaemia (737891260) Impaired fasting blood sugar (R73.01) Active confirmed Problem Acquired hypothyroidism (460820925) Acquired hypothyroidism (E03.9) Active confirmed Problem H/O: thyroid disorder (268052403) History of thyroid nodule (Z86.39) Active confirmed Plan Of Treatment Future Test Test Name Order Date TSH WITH REFLEX TO FT4 01/14/2019 Insurance Providers Payer Name Payer Address Payer Phone Subscriber Number Group Number Insured Name Patient Relationship to Insured Coverage Start Date Coverage End Date [facility] [address] [place] [address] [id number] JUNI ZAMORA Self - patient is the insured Medical (General) History Medical History History ICD Code allergy asthma Deviated septum high cholesterol headaches migraines Hx thyroid nodule ~ 1987- bef ore FNA could be done hypothyroid, Dx 1997 4 pregnancies, 2 live births, 2 miscarri ages Impaired fasting glucose 102 in 07/24 Surgical History Surgery Date(Month/Year) D&C times 2 2006 1999
== END 2025-10-14 14:15 | disposition home or self-care (01) ==
LOC: HO.WFDLDS 14:14
PROVIDERS: PCP Physician Assistant Medical; Referring Provider Physician Assistant Medical; Visit Provider Nurse Practitioner Family
DX: J45.909 Unspecified asthma, uncomplicated (principal); G47.33 Obstructive sleep apnea (adult) (pediatric); Z99.89 Dependence on other enabling machines and devices; Z91.09 Other allergy status, other than to drugs and biological substances; Z87.891 Personal history of nicotine dependence
CPT/HCPCS: 36415; 82785; 85025; 86003

== ENCOUNTER 2025-10-20 15:20 | Outpatient (REF) | payer OTHER, SELFPAY ==
--- NOTE | ~2025-10-20 | US_ITS ---
EXAMINATION: US THYROID CLINICAL INFORMATION: Thyrotoxicosis. E05.90 COMPARISON: None available. TECHNIQUE: Linear transducer grayscale and color Doppler examination with attention to the region of the thyroid. FINDINGS: SIZE: Measurements of the thyroid lobes and nodules are given in sagittal, anteroposterior and transverse dimensions respectively. Right Thyroid Lobe: 4.2 x 1.2 x 1.1 cm, volume 3.0 mL. Parenchyma: The gland echotexture is heterogeneous. Thyroid vascularity is increased. Left Thyroid Lobe: 3.7 x 1.3 x 1.1 cm, volume 2.7 mL. Parenchyma: The gland echotexture is heterogeneous. Thyroid vascularity is increased. Isthmus: 0.23 cm in maximum AP dimension. Estimated total number of nodules greater than or equal to 1 cm: 0. [employer] Operator nodules are described as follows: NODES: No lymphadenopathy is seen in the tissue surrounding the thyroid gland. US/US thyroid IMPRESSION: ACR TI-RADS Category 0. ACR TI-RADS RECOMMENDATION REFERENCE: Ultrasound-guided fine-needle aspiration, followup ultrasound, no further follow up. * TR1 (0 point) and TR2 (2 points): No FNA or follow up. * TR3 (3 points): FNA if more than or equal to 2.5 cm in maximum dimension, followup ultrasound in 1, 3 and 5 years if 1.5 to 2.4 cm in maximum dimension. * TR4 (4-6 points): FNA if more than or equal to 1.5 cm in maximum dimension, followup ultrasound in 1, 2, 3 and 5 years if 1 to 1.4 cm in maximum dimension. * TR5 (more than or equal to 7 points): FNA if more than or equal to 1 cm in maximum dimension, followup ultrasound every year for 5 years if 0.5 to 0.9 cm in maximum dimension. * TR3, TR4 or TR5 nodules that are below the size threshold for followup receive no follow up. Electronically signed by: Romero Newton MD 10/21/2025 07:11 AM FELICIANO
--- OUTSIDE RECORDS SUMMARY | 2025-10-20 21:49 | XMS_ITS | Patient Health Record ---
Author Organization [facility] Address [address] [facility] [place] [address] Care Team Providers Care Geophysicist Name Role Phone Ganga Kebede MD Primary Care Provider Bernabe Ferro Unavailable [phone] Allergies Allergen (clinical drug ingredient) Drug/Non Drug [...] W/U Status Risk Notes Problem Verruca plantaris (88706881) Verruca Plantaris (078.19) Active confirmed Problem Hallux valgus (564789762) Hallux Valgus (735.0) Active confirmed Problem Pain in limb (26347504) Pain in Limb (729.5) Active confirmed Plan Of Treatment Pending Test Test Name Order Date X ray : Foot, right 3V 08/11/2014 [id number] Destruction, 11-1909/01/2014 [id number] Destruction, 11-1909/24/2014 [id number] Destruction, 11-1910/22/2014 [id number] Destruction, 11-1908/11/2014 Insurance Providers Payer Name Payer Address Payer Phone Subscriber Number Group Number Insured Name Patient Relationship to Insured Coverage Start Date Coverage End Date [facility] [address] [place] [address] [phone] [id number] Cindy Brennan Self - patient is the insured Medical (General) History Medical History History ICD Code Anxiety asthma Back,Hip,and Knee pain Chicken pox Headaches Migraines Sinus conditions Thyroid disorder Surgical History Surgery Date(Month/Year) section 1999, 2006 dilatation and curettage 2004, 2005
--- OUTSIDE RECORDS SUMMARY | 2025-10-20 21:50 | XMS_ITS | Patient Health Record ---
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 alcohol use: yes 1 drink per week drug use: no Coffee/Tea/Soda: yes 3 decaf per day Marital Status single Problems Problem Type SNOMED Code ICD Code Onset Dates Problem Status W/U Status Risk Notes Problem Impaired fasting glycaemia (763723415) Impaired fasting blood sugar (R73.01) Active confirmed Problem Acquired hypothyroidism (426085267) Acquired hypothyroidism (E03.9) Active confirmed Problem H/O: thyroid disorder (408435009) History of thyroid nodule (Z86.39) Active confirmed Plan Of Treatment Future Test Test Name Order Date TSH WITH REFLEX TO FT4 01/14/2019 Insurance Providers Payer Name Payer Address Payer Phone Subscriber Number Group Number Insured Name Patient Relationship to Insured Coverage Start Date Coverage End Date [facility] [address] [place] [address] [id number] JUNI ZAMORA Self - patient is the [...]
--- OUTSIDE RECORDS SUMMARY | 2025-10-20 21:50 | XMS_ITS | Patient Health Record ---
Author Organization [facility] Address [address] [place] [address] Care Team Providers Care Cheese Sprayer Name Role Phone Yandy (RETIRED) Ganga ORELLANA Primary Care Provider Unavailable Viet Ortiz Unavailable [phone] Allergies Allergen (clinical drug ingredient) Drug/Non Drug Allergy documented on EMR Reaction Allergy Type Onset Date Status sulfacetamide Sulfacetamide Sodium Unknown Drug Allergy Active Reason For Referral No Information Medications Medication SIG (Take, Route, Frequency, Duration) Notes Start Date End Date Status Multivitamin Adults - Tablet as directed Orally Active LORazepam 0.5 MG Tablet 1 tablet as need ed Orally every 6 hrs Not-Taking/DC N Rosuvastatin Calcium 40 MG Tablet TAKE [...] 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: Nonsmoker; no sig alcohol Nonsmoker; no sig alcohol Problems Problem Type SNOMED Code ICD Code Onset Dates Problem Status W/U Status Risk Notes Problem Screening for malignant neoplasm of colon (817037349) Encounter for screening for malignant neoplasm of colon (Z12.11) Active confirmed Problem Preprocedural examination (024584446177476) Preprocedural examination (Z01.818) Active confirmed Plan Of Treatment Future Test Test Name Order Date COLONOSCOPY 11/22/2018 COLONOSCOPY 01/26/2022 Insurance Providers Payer Name Payer Address Payer Phone Subscriber Number Group Number Insured Name Patient Relationship to Insured Coverage Start Date Coverage End Date [facility] [address] [place] [phone] [id number] JUNI ZAMORA Self - patient is the insured Medical (General) History Medical History History ICD Code Heart murmur--does not see a news photographer and does not get periodic echocardiograms Asthma Denies [place],DM,CVA,renal disease Hypothyroidism Anxiety Sleep apnea -uses a CPAP Hyperlipidemia Surgical History Surgery Date(Month/Year) C-sections D & C Umbilical Hernia [id number]. Mazzuc co
--- OUTSIDE RECORDS SUMMARY | 2025-10-20 21:50 | XMS_ITS | Continuity of Care Document ---
Author Organization [facility] Address [address] [address] Insurance Providers Payer Plan Claims Address Claims Phone Policy Number Group Number Relation Employer Guarantor Name Guarantor Guarantor Address Guarantor Phone [employer] [address], [place] [address] tel:[phone] [id number] Self Cindy Brennan [address] [place] [address] [facility] [id number] Self Cindy Brennan [address] [place] [address] MEDIC AID OF [facility] [address], [place] [address] tel:[phone] Self Cindy Brennan [address] [place] [address] Problems Condition ICD9 code ICD10 code SNOMED code Start Date End Date S tatus Encounter for screening for other metabolic disorders Z13.228 Results No Results Allergies, adverse reactions, alerts No known allergies and adverse reactions Medications No administered medications reported Vital Signs No vital signs reported Social History No smoking Hx information available
== END 2025-10-20 15:21 | disposition home or self-care (01) ==
LOC: HO.HMGCX 15:20
PROVIDERS: PCP Physician Assistant Medical; Visit Provider Physician Assistant Medical
DX: E05.90 Thyrotoxicosis, unspecified without thyrotoxic crisis or storm (principal)
CPT/HCPCS: 76536

== ENCOUNTER → 2025-10-20 15:24 | Outpatient (BNV) | payer OTHER, SELFPAY | PROVIDERS: PCP Physician Assistant Medical; Visit Provider Radiology Diagnostic Radiology | DX: E05.90 Thyrotoxicosis, unspecified without thyrotoxic crisis or storm (principal) | CPT/HCPCS: 76536 ==